=== PATIENT | female | born 1955 | race Caucasian/White ===

== ENCOUNTER → 2023-01-30 12:20 | Outpatient (CLI) | payer MEDICARE, BC, SELFPAY ==
--- NOTE | ~2023-01-30 | DEXA_ITS ---
Bone Density Report Name: MERLIN MADDOX Age: 67 Sex: Female Ethnicity: White Date of : 1955 Indication: postmenopausal; screening for osteoporosis; hysterectomy; Referring Provider: GILBERT CHAUDHARI Study: Bone densitometry was performed. Exam Date: January 30, 2023 Accession number: [id number] Bone Density: Region BMD T-score Z-score Classification AP Spine (L1, L2, L3) 1.083 0.6 2.5 Normal Femoral Neck (Left) 0.917 0.6 2.3 Normal Total Hip (Left) 1.025 0.7 2.1 Normal Femoral Neck (Right) 0.902 0.5 2.1 Normal Total Hip (Right) 1.091 1.2 2.6 Normal Total Hip Mean 1.058 1.0 2.4 Normal World Health Organization criteria for BMD impression classify patients as: Normal (T-score at or above -1.0), Osteopenia (T-score between -1.0 and -2.5), or Osteoporosis (T-score at or below -2.5). 10-year Fracture Risk: FRAX not reported because: All T-scores for Spine Total, Hip Total, Femoral Neck at or above -1.0 Clinical Information Provided by Patient: Has used the following medications: HRT (i.e. estrogen/hormone therapy), Calcium, MTV, vit D included in Calcium Has the following medical conditions: Hysterectomy Patient maximum height was 65 Menopause Age: 38 Drinks caffeinated beverages Onset of menses at age 13 Number of children 2 Impression: The patient has normal bone mass. Discussion: LOW RISK OF FRACTURE; BONE DENSITY IS WELL ABOVE THE MINIMUM DESIRABLE LEVEL AND ABOVE AVERAGE FOR AGE AND SEX AT ALL SKELETAL SITES TESTED. This person's bone density is above expected limits for age and sex. This is rarely clinically significant, but should be pursued if there are significant musculoskeletal complaints. The patient should follow a healthful lifestyle (good nutrition with adequate calcium and vitamin D, and appropriate weight-bearing exercise). Follow-Up: Consider repeating this study in 5 years or sooner if there is some new clinical indication. Reported by: BINH on 01/30/2023 12:59:00 PM. Reviewed, dictated and finalized at location A. LAURA
--- NOTE | ~2023-01-30 | MM_ITS ---
EXAMINATION: MM screening [facility] BI w nicky HISTORY: Screening mammogram TECHNIQUE: Craniocaudal and mediolateral oblique 3-D tomosynthesis images were obtained and synthetic 2-D images were generated. CAD analysis was submitted and interpreted. COMPARISON: Prior mammograms are reportedly at [facility]. BREAST PARENCHYMAL COMPOSITION: There are scattered areas of fibroglandular density. FINDINGS: Prominent asymmetric irregular approximately 3.5-4 cm density with spiculation is noted in the posterior central mid to lower right breast, with evidence of overlying retraction. There are mul tiple areas of fat attenuation with soft tissue capsule. There is a history of bilateral breast reduc tion and lift in July 2022 and right breast hematoma. The findings are most likely postsurgical scar ring and fat necrosis. Comparison with prior mammogram examinations is recommended. No suspicious mass, architectural distortion, malignant calcification, skin thickening or retraction of either breast is noted otherwise. IMPRESSION: 1. Probable postoperative scarring and fat necrosis of right breast 2. Comparison with prior mammograms is recommended BI-RADS Category 0: Incomplete: Needs additional imaging evaluation: Comparison with prior mammogram examinations. Reviewed, dictated and finalized at location A.
== END ==
PROVIDERS: Visit Provider Physician Assistant
DX: Z12.31 Encounter for screening mammogram for malignant neoplasm of breast (principal); R92.8 Other abnormal and inconclusive findings on diagnostic imaging of breast; Z78.0 Asymptomatic menopausal state
CPT/HCPCS: 77063; 77067; 77080

== ENCOUNTER 2023-02-28 11:28 | Outpatient (CLI) | payer MEDICARE, BC, SELFPAY ==
--- NOTE | ~2023-02-28 | MMUS_ITS ---
EXAMINATION: MM diagnostic dee RT w nicky, US breast RT complete HISTORY: Breast reduction surgery in July 2022. Abnormal right screening mammogram on 01/30/2023 TECHNIQUE: Additional 3-D tomosynthesis images of the right breast were performed and synthetic 2-D i mages were generated. CAD analysis was submitted and interpreted. High resolution complete right [place] [facility] ultrasound examination could all 4 quadrants and subareolar area was performed. COMPARISON: 01/30/2023 bilateral screening mammogram 12/15/2021 bilateral screening mammogram BREAST PARENCHYMAL COMPOSITION: There are scattered areas of fibroglandular density. FINDINGS: MAMMOGRAPHIC FINDINGS: There is prominent asymmetric increased density, architectural distortion and multiple thin-walled oi l cysts in the posterior inferior central to outer right breast. Considering a normal mammogram in November 2021 and interval breast reduction surgery in July 2022, the very prominent findings are likely sequela of the breast reduction surgery with fat necrosis and scar ring. ULTRASOUND: In the region of the breast scar at 6:00 there is significant abnormality including oval hypoechoic m asses measuring up to 14 mm size adjacent to approximately 1.8 x 2.8 cm complex mixed solid and soft tissue mass with through transmission posterior enhancement suggesting complicated fluid collection s uch as seroma or hematoma. The mammographic and sonographic features are most suggestive of postoperative change including hemat juan and/or seroma and fat necrosis. IMPRESSION: 1. Probable benign postsurgical change following reduction mammoplasty in July of this year 2. Diagnostic six-month mammogram and ultrasound follow-up are recommended BI-RADS category 3, probably benign findings. Reviewed, dictated and finalized at location A. IMPRESSION: 1. Probable benign postsurgical change following reduction mammoplasty in July this year 2. Diagnostic six-month mammogram and ultrasound follow-up are recommended BI-RADS category 3, probably benign findings.
== END 2023-02-28 11:29 | disposition home or self-care (01) ==
LOC: ANHIMG 11:30
PROVIDERS: Visit Provider Physician Assistant
DX: R92.8 Other abnormal and inconclusive findings on diagnostic imaging of breast (principal)
CPT/HCPCS: 76641; 77061; 77065; G0279

== ENCOUNTER 2023-09-18 10:17 | Outpatient (CLI) | payer MEDICARE, BC, SELFPAY ==
--- NOTE | ~2023-09-18 | MMUS_ITS ---
EXAMINATION: MM diagnostic dee RT w nicky, US breast RT limited HISTORY: Six-month follow-up of probable benign findings on 02/28/2023 diagnostic right mammogram and right breast ultrasound examination TECHNIQUE: Additional 3-D tomosynthesis images of were performed and synthetic 2-D images were genera isabella. CAD analysis was submitted and interpreted. High resolution breast ultrasound was performed. COMPARISON: 02/28/2023 diagnostic right mammogram and incomplete right breast ultrasound examination 01/30/2023 bilateral screening mammogram 12/15/2021 bilateral screening mammogram BREAST PARENCHYMAL COMPOSITION: There are scattered areas of fibroglandular density. FINDINGS: MAMMOGRAPHIC FINDINGS: There is diminished soft tissue density in the previously reported irregular opacity in the posterior mid to lower outer right breast compared to 01/31/2020. There are small oil cysts. There printer's assistant ural distortion most consistent with postsurgical scarring. The breast is otherwise unremarkable. No interval suspicious mass, architectural distortion, malignan t calcification, skin thickening or retraction is noted ULTRASOUND: There is diminished overall size of irregular hypoechogenicity in the 6:00 area since 02/28/2023. There is an approximately 6.5 x 11 x 12 mm circumscribed heterogeneous mass with soft tissue and fat density at 6:00 8 cm from the nipple. A similar partially circumscribed approximately 6.6 x 11 mm are a is noted nearby. The findings are most likely due to some interval contraction of the prominent scarring previously gann ggested. IMPRESSION: 1. Probable benign postoperative findings post reduction mammoplasty 2. Six-month diagnostic bilateral mammogram and right breast ultrasound follow-up are recommended BI-RADS category 3, probably benign findings. Reviewed, dictated and finalized at location A. IMPRESSION: 1. Probable benign postoperative findings post reduction mammoplasty 2. Six-month diagnostic bilateral mammogram and right breast ultrasound follow- up are recommended BI-RADS category 3, probably benign findings.
== END 2023-09-18 10:18 | disposition home or self-care (01) ==
PROVIDERS: PCP Family Medicine; Visit Provider Physician Assistant
DX: R92.8 Other abnormal and inconclusive findings on diagnostic imaging of breast (principal)
CPT/HCPCS: 76642; 77061; 77065; G0279

== ENCOUNTER 2024-03-13 12:30 | Outpatient (CLI) | payer MEDICARE, BC, SELFPAY ==
--- NOTE | ~2024-03-13 | XR_ITS ---
XR shoulder LT min 2V Ordering provider: Chinyere Mao PA-C History: . M54.2 - Cervicalgia . Comparison: None. FINDINGS: BONES: No acute fracture or dislocation. JOINT SPACES: The acromioclavicular joint is normal. The glenohumeral joint is normal. SOFT TISSUES: Normal. IMPRESSION: No acute osseous abnormality left shoulder. Reviewed, dictated and finalized at location A.
--- NOTE | ~2024-03-13 | XR_ITS ---
[id number] Ordering provider: Chinyere Mao PA-C History: . M54.2 - Cervicalgia . Comparison: August 03, 2009 FINDINGS: VERTEBRAL BODIES: Minimal anterolisthesis at the level of C2-C3 and C6-C7. Multilevel uncovertebral j oint osteoarthritic changes. Otherwise, Normal height and alignment. No visible fracture or subluxati on. The dens is intact. DISK SPACES: Degenerative disc disease at the level of C5-C6 and C6-C7. Multilevel facet joint diseas e. PARASPINOUS SOFT TISSUES: No prevertebral soft tissue swelling. IMPRESSION: No acute osseous abnormality cervical spine. Multilevel degenerative disc disease. Changes increased compared to previous study. Reviewed, dictated and finalized at location A. IMPRESSION: No acute osseous abnormality cervical spine. Multilevel degenerative disc disease. Changes increased compared to previous [email or web address]
== END 2024-03-13 12:31 | disposition home or self-care (01) ==
PROVIDERS: PCP Family Medicine; Visit Provider Student in an Organized Health Care Education/Training Program
DX: M25.512 Pain in left shoulder (principal); M50.322 Other cervical disc degeneration at C5-C6 level
CPT/HCPCS: 72040; 73030

== ENCOUNTER 2024-03-20 10:53 | Outpatient (CLI) | payer MEDICARE, BC, SELFPAY ==
--- NOTE | ~2024-03-20 | MMUS_ITS ---
EXAMINATION: MM diagnostic dee BI w nicky, US breast RT limited HISTORY: Six-month follow-up exam TECHNIQUE: 3-D tomosynthesis images of the breasts were performed and synthetic 2-D images were gener ated. CAD analysis was submitted and interpreted. High resolution limited right breast ultrasound was performed. COMPARISON: 09/18/2023, 02/28/2023 BREAST PARENCHYMAL COMPOSITION:Not Dense. There are scattered areas of fibroglandular density. FINDINGS: MAMMOGRAPHIC FINDINGS: Parenchymal pattern of the breasts is similar to prior exam. Stable postoperative change and distorti on in the outer, posterior right breast. No suspicious abnormality of the left breast seen. No suspic ious microcalcifications. ULTRASOUND: At the 6:00 position right breast, 8 cm from nipple, at the region of scar, there is a 0.9 x 0.8 x 0. 8 cm hypoechoic rounded masslike lesion. This is mildly decreased in size from prior exam. At the 7:0 0 position right breast, 9 cm in the nipple, there is an additional 1.0 x 0.6 x 1.0 cm hypoechoic wid er than tall masslike lesion present. IMPRESSION: Similar sonographic findings to prior exams, with 2 somewhat masslike areas present near the region of scarring. Findings likely represent evolving postoperative change and/or fat necrosis. No signific ant mammographic progression, and within the lesion does mildly decrease in size from prior ultrasoun d. Findings are most likely benign. Additional six-month follow-up ultrasound advised to reassess. No definite evidence for malignancy. BI-RADS category 3, probably benign findings. Reviewed, dictated and finalized at location M. IMPRESSION: Similar sonographic findings to prior exams, with 2 somewhat masslike areas pr esent near the region of scarring. Findings likely represent evolving postopera tive change and/or fat necrosis. No significant mammographic progression, and w ithin the lesion does mildly decrease in size from prior ultrasound. Findings a re most likely benign. Additional six-month follow-up ultrasound advised to dominik ssess. No definite evidence for malignancy. BI-RADS category 3, probably benign findings.
== END 2024-03-20 10:54 | disposition home or self-care (01) ==
LOC: ANHIMG 10:53
PROVIDERS: PCP Family Medicine; Visit Provider Physician Assistant Medical
DX: R92.8 Other abnormal and inconclusive findings on diagnostic imaging of breast (principal)
CPT/HCPCS: 76642; 77062; 77066; G0279

== ENCOUNTER 2024-05-31 09:04 | Emergency (ER) | payer MEDICARE, BC, SELFPAY ==
--- NOTE | ~2024-05-31 | XR_ITS ---
XR wrist LT min 3V DATE: 05/31/2024 09:29 INDICATION: Fall. Left wrist pain TECHNIQUE: 3 views COMPARISON: None FINDINGS: There is narrowing at the triscaphe joint. There is narrowing and spurring at the first car pometacarpal joint. There is prominent osteoarthritic change including joint space narrowing and spur ring at the first digit interphalangeal joint as well. No fracture or dislocation, periosteal reaction or bone destruction. IMPRESSION: Polyarticular osteoarthritis No fracture or dislocation Reviewed, dictated and finalized at location A. CAL SECRETARY RECEPTIONIST
[2024-05-31 09:06] VITALS: BP 132/92; PULSE 97; RESP 18; TEMP 37.2; O2SAT 98
--- NOTE | 2024-05-31 09:13 | ED_ITS ---
HPI - Extremity Injury (Upper) General Chief Complaint: Extremity Injury, Upper Stated Complaint: LEFT WRIST PAIN Source: patient Mode of arrival: ambulatory Limitations: no limitations History of Present Illness HPI narrative: this is a 68-year-old female who presents after reaching for kitchen item heard a pop in her left wrist and intense pain did take some Tylenol prior to arrival to the emergency department. Patient has good range of motion although tender and limited secondary to pain has a brisk radial pulse on the left. complaint: injury to: left Onset (ago): hour(s) Other Extremity Injury: Left: wrist ( Pain with palpation) Handedness: right Place: home Severity: mild Severity scale (1-10): 4 Relieving factors: cold therapy and immobilization Exacerbating factors: movement of extremity Related Data Home Medications ?Medication ?Instructions ?Recorded ?Confirmed ?Last Taken ?Type multivitamin-ferrous 1 tablet PO DAILY 02/12/20 05/22/24 Unknown History fumarate-folic acid 18 mg-400 mcg tablet (Centrum Complete) pseudoephedrine HCl 30 mg tablet 30 mg PO Q4-6H PRN 02/12/20 05/22/24 Unknown History (Sudafed) calcium 600 mg (as cap PO 04/12/21 05/22/24 Unknown History carbonate)-vitamin D3 5 mcg (200 unit) capsule famotidine 10 mg tablet 10 mg PO DAILY 04/05/22 05/22/24 Unknown History ferrous sulfate 134 mg (27 mg 134 mg PO DAILY 04/05/22 05/22/24 Unknown History iron) tablet mecobalamin (vitamin B12) 1,000 1,000 mcg PO DAILY 04/05/22 05/22/24 Unknown History mcg chewable tablet thiamine HCl (vitamin B1) 100 mg 100 mg PO DAILY 04/05/22 05/22/24 Unknown History tablet cholecalciferol (vitamin D3) 25 25 mcg PO DAILY 10/03/22 05/22/24 Unknown History mcg (1,000 unit) capsule Allergies Allergy/AdvReac Type Severity Reaction Status Date / Time No Known Allergies Allergy Verified 05/31/24 09:14 [facility] Past Medical History Medical History Depression 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 Hyperlipidemia Microcytic anemia Hypertension Metal bone fixation hardware in place Surgical History Surgical History S/P brachioplasty Hx of breast reduction, elective [place] abdom[place] H/[place] gastric sleeve (~09[place]2021[place] History of hysterectomy H/O total knee replacement History of back surgery History of cholecystectomy [place] teeth removed History of tonsillectomy Family History Family History Sibling Diabetes mellitus Father Hypertension Malignant neoplasm of prostate Family history of malignant neoplasm of urinary bladder Mother Hypertension Acute myocardial infarction Family history of malignant neoplasm of uterus Family history of arthritis Social History Social History Smoking packs per day: 1 Smoking cigarettes per day: 20.0 Years smoked: 20 Smoking pack-years: 20.00 Smoking status: Former smoker Second hand tobacco smoke exposure: No Smoking end date: 05/21/93 Alcohol intake: never Substance use: never Substance use type: does not use Lack of Transportation: No Lack of Food: Never True Current Housing: I Have Housing Concerned About Future Housing: No Difficulty Paying Gas/Electric Bills: No Difficulty Paying for Meds: No Currently Unemployed: No Education: Bachelor's Degree Difficulty w/ Childcare or Family Care: No Living arrangements: with family Occupation/Education: retired Additional occupation/education comments: [employer] Gender identity (if verbalized by the patient): Female Sexual Orientation (if Verbalized by the Patient): Straight or Heterosexual Exam Const: General: healthy appearing, no acute distress and alert Nutritional Appearance: well nourished Limitations: no limitations Resp: Effort & Inspection: normal respiratory effort Auscultation: clear to auscultation bilaterally Cardio: Rate: regular rate Rhythm: regular rhythm Skin: General skin exam: normal color Rashes: no rashes Wounds: no wounds Neuro: General: patient oriented x3 and moves all extremities Extrem: General: normal to inspection Other: Positive Elliott test on the left Course Course Emergency Course: patient had x-ray performed of the left wrist. Critical Care Time Critical Care Time Critical Care Time: No Discharge Plan Discharge Clinical Impression: Left wrist sprain Qualifiers: Encounter type: initial encounter Qualified Code(s): S63.502A - Unspecified sprain of left wrist, initial encounter Patient Disposition: Home, Self-Care Condition: Stable Instructions: Antibiotic Form, Wrist Sprain (ED) Patient Language: Vietnamese Prescriptions: No Action Centrum Complete 18-400 mg-mcg tablet 1 tablet PO DAILY pseudoephedrine HCl [Sudafed] 30 mg tablet 30 mg PO Q4-6H PRN Rx Instructions: DNExceed 4 doses/24h cyclobenzaprine 10 mg tablet 10 mg PO TID Qty: 21 0RF calcium carbonate-vitamin D3 600 mg calcium- 200 unit capsule PO famotidine 10 mg tablet 10 mg PO DAILY mecobalamin (vitamin B12) 1,000 mcg tablet,chewable 1,000 mcg PO DAILY thiamine HCl (vitamin B1) 100 mg tablet 100 mg PO DAILY ferrous sulfate 134 mg (27 mg iron) tablet 134 mg PO DAILY cholecalciferol (vitamin D3) 25 mcg (1,000 unit) capsule 25 mcg PO DAILY venlafaxine [Effexor XR] 150 mg capsule,extended release 24hr 150 mg PO DAILY Qty: 90 2RF lorazepam 1 mg tablet 1 mg PO TID PRN (Reason: anxiety) Qty: 90 0RF lisinopril 20 mg tablet 20 mg PO DAILY Qty: 30 3RF hydrochlorothiazide 12.5 mg tablet 12.5 mg PO DAILY Qty: 90 1RF Follow-up/Referrals: Aiyana Parsons MD [Primary Care Provider] -
== END 2024-05-31 09:43 | disposition home or self-care (01) ==
LOC: CHSED 09:38
PROVIDERS: Emergency Provider Emergency Medicine; PCP Family Medicine
DX: S63.502A Unspecified sprain of left wrist, initial encounter (principal); X50.0XXA Overexertion from strenuous movement or load, initial encounter; Z87.891 Personal history of nicotine dependence
CPT/HCPCS: 73110; 99283

== ENCOUNTER 2024-06-10 12:25 | Outpatient (CLI) | payer MEDICARE, BC, SELFPAY ==
--- NOTE | 2024-06-10 12:44 | ECG_ITS ---
Test Date: 2024-06-10 12:56:01 Measurements Intervals [place] Rate: 67 P: -6 DC: 107 QRS: -21 QRSD: 89 T: 29 QT: 386 QTc: 410 Interpretive Statements SINUS RHYTHM WITH SHORT DC INTERVAL BORDERLINE LEFT AXIS DEVIATION [QRS AXIS < -20] No previous ECG available for comparison Electronically Signed On 06-12-2024 13:32:59 MUSIC COORDINATOR by Diana Lugo
[2024-06-10 13:18] LABS: Alanine Aminotransferase 15 U/L (6-35); Albumin Level 4.1 g/dL (3.5-5.1); Alkaline Phosphatase 73 U/L (38-126); Anion Gap 7 mmol/L (4-12); Aspartate Amino Transferase 20 U/L (14-36); Bilirubin,Total 0.5 mg/dL (0.2-1.3); Blood Urea Nitrogen 19 mg/dL (7-17); Carbon Dioxide 30 mmol/L (22-30); Chloride 102 mmol/L (98-107); Cholesterol 233 mg/dL (0-200); Estimated Glomerular Filt Rate > 60; Glucose 99 mg/dL (65-110); HDL Direct 69 mg/dL; Potassium 4.1 mmol/L (3.4-5.0); Sodium 139 mmol/L (137-145); Triglycerides 164 mg/dL (<150)
[2024-06-10 13:28] LABS: LDL Cholesterol Direct 130 mg/dL
--- OUTSIDE RECORDS SUMMARY | 2024-06-12 18:13 | XMS_ITS | Continuity of Care Document ---
Author Organization [facility] Address [address] [place] [address] Phone Care Team Providers Care Fashion Illustrator Name Role Phone Muly OD OD, Vic Unavailable Unavailabl e Advance Directives Directive Yes / No Effective Date File Name No Information Encounters Encounter Description Practice Location Reason(s) For Visit Diagnoses Date Provider Providers Copied on Encounter [facility], [address], [place], [place], [id number], [place] tel:[phone] SEC [place] Letty Ornelasagustin No Information [address] OD Vic. [address] [place], [place], [id number], [place]. tel:[phone] Family History Family Member Type Diagnosis Age [...]
--- OUTSIDE RECORDS SUMMARY | 2024-06-12 18:14 | XMS_ITS | Patient Health Record ---
Author Organization [facility] [employer] [facility] Address [address] [place] [address] Care Team Providers Care Arbitrator Name Role Phone Aiyana Parsons MD Primary Care Provider UnavailMaribel Hernandes Unavailable [phone] Migration, Provider Unavailable Unavailable Allergies No Known Allergies Reason For Referral No Information Medications Medication SIG (Take, Route, Fr equency, Duration) Notes Start Date End Date Status LORazepam 1 MG 1 tablet Oral twice daily for 30 days 04/29/2024 Active Venlafaxine HCl 75 MG 1 tablet with food Oral Once a day for 90 days Active Venlafaxine HCl 75 MG TAKE 1 TABLET BY M OUTH DAILY WITH FOOD for 90 Active Lisinopril 10 MG 1 tablet Orally Once a day Active Social History Sex Assigned At : Social History Observation Description Sex Assigned At Female Household Question Answer Notes Marital status: Problems Problem Type SNOMED Code ICD Code Onset Dates Problem Status W/U Status Risk Notes Problem [id number] ALFONSO (generalized anxiety disorder) (F41.1) Active confirmed Problem [id number] MDD (major depressive disorder), recurrent episode, mild (F33.0) Active confirmed Vital Signs Heart Rate 89 /min 10/23/2023 Blood pressure diastolic 83 mm Hg 10/23/2023 Weight-kg 73.57 kg 10/23/2023 Blood pressure systolic 132 mm Hg 10/23/2023 Weight 162.2 lbs 10/23/2023 Encounters Encounter Location Date Provider Diagnosis [facility] [address] [place] [address] 10/23/2023 Maribel Dubon MDD (major depressive disorder), recurrent episode, mild F33.0 and ALFONSO (generalized anxiety disorder) F41.[address] [facility] [address] [place] [address] 04/29/2024 Maribel Dubon MDD (major depressive disorder), recurrent episode, mild F33.0 and ALFONSO (generalized anxiety disorder) F41.[address] [facility] [address] [place] [address] 09/10/2023 Provider Migration [address] [address] 10/06/2023 Provider Migration [address] [address] 10/07/2023 Provider Migration Assessments Encounter Date Diagnosis (ICD Code) Assessment Notes Treatment Notes Treatment Clinical Notes Section Notes 10/23/2023 ALFONSO (generalized anxiety disorder) (ICD-10 - F41.1) Overall feels her depression and anxiety are stable on current treatment. Feels situationally mildly depressed due to losing both her previous psychiatrist and primary care provider. Denies side effects to medications. No concerns today, here to re-establish care. 10/23/2023 MDD (major depressive disorder), recurrent episode, mild (ICD-10 - F33.0) Overall feels her depression and anxiety are stable on current treatment. Feels situationally mildly depressed due to losing both her previous psychiatrist and primary care provider. Denies side effects to medications. No concerns today, here to re-establish care. 04/29/2024 MDD (major depressive disorder), recurrent episode, mild (ICD-10 - F33.0) SSRI/SNRI side effects discussed including but not limited to, gastric upset, nausea, vomiting, diarrhea and/or constipation, weight changes, sexual side effects including loss of libido, increased suicidal thoughts/behavio rs in children and young adults, and serotonin syndrome. 04/29/2024 ALFONSO (generalized anxiety disorder) (ICD-10 - F41.1) 04/29/2024 Other Overall stable, cont current medications. Refills sent in. Patient educated on all medications including potential benefits, side effects, risks. Educated on proper dosing schedule and importance of compliance. [place] report checked and consistent with prescription history, no controlled substance prescriptions from other providers. -Assessment and treatment plan reviewed with patient. -Compliance with treatment plan importance discussed. -Discussed the risks/benefits of this medication -Discussed medication side effects. -Contact office if symptoms worsen. -Discussed that it can take up to 6-8 weeks to see full therapeutic effects of psychotropic medications. -Crisis prevention hotline 988. Plan Of Treatment Pending Test Test Name Order Date UDT 10/23/2023 Next Appt Details Provider Name:Maribel Dubon, 10/28/2024 01:00:00 PM, [address] [facility] [address] [address], [facility] [address], [place], [address], Insurance Providers Payer Name Payer Address Payer Phone Subscriber Number Group Number Insured Name Patient Relationship to Insured Coverage Start Date Coverage End Date [employer] Medicare Replaceme nt/Advant age - Ppo [address] [place] [address] [id number] MERLIN MADDOX Self - patient is the insured [facility] [address] [place] [address] [id number] MERLIN MADDOX Self - patient is the insured Medical (General) History Medical History History ICD Code Eye enucleation s/p retinal detachment Surgical History Surgery Date(Month/Year) hysterectomy
--- OUTSIDE RECORDS SUMMARY | 2024-06-12 18:14 | XMS_ITS ---
Author Organization [facility] Address [address] [place] [address] Care Team Providers Care Catalyst Unit Operator Name Role Phone Aiyana Parsons MD Primary Care Provider Maribel Rich Unavailable [phone] Allergies No Known Allergies REASON FOR VISIT follow up Medications Medication SIG (Take, Route, Fr equency, [...] Female Household Question Answer Notes Marital status: Encounters Encounter Location Date Provider Diagnosis [facility] [employer] [facility] [address] [facility] [address] [facility] [address] [place] [address] 04/29/2024 Maribel Dubon MDD (major depressiv e disorder), recurrent episode, mild F33.0 and ALFONSO (generalized anxiety disorder) F41.1 Assessments Encounter Date Diagnosis (ICD Code) Assessment Notes Treatment Notes Treatment Clinical Notes Section Notes 04/29/2024 MDD (major depressive disorder), recurrent episode, mild (ICD-10 - F33.0) SSRI/SNRI side effects discussed including but not limited to, gastric upset, nausea, vomiting, diarrhea and/or constipation, weight changes, sexual side effects including loss of libido, increased suicidal thoughts/behavior s in children and young adults, and serotonin [...] effects of psychotropic medications. -Crisis prevention hotline 698. Plan Of Treatment Medication Medication Name Sig Start Date Stop Date Notes LORazepam 1 MG 1 tablet Oral twice daily for 30 days 04/29/2024 Venlafaxine HCl 75 MG 1 tablet with food Oral Once a day for 90 days Treatment Notes Assessment Notes MDD (major depressive disord er), recurrent episode, mild SSRI/SNRI side effects discussed includi ng but not limited to, gastric upset, nausea, vomiting, diarrhea and/or constipation, weight changes, sexual side effects including loss of libido, increased suicidal thoughts/behaviors in children and young adults, and serotonin syndrome. Other Overall stable, cont current medications. Refills sent in. Patient educated on all medications including potential benefits, side effects, risks. Educated on proper dosing schedule and importance of compliance. [place] report checked and consistent with prescription history, no controlled substance prescriptions from other providers. Next Appt Details Follow Up: 6 Months, Reason: medication follow up Provider Name:Maribel Dubon, 10/28/2024 01:00:00 PM, [address] [facility] [address], [facility] [address], [place], [address], Progress Notes * WES MADDOXOB:1955 ( 68 yo F)Acc No.[id number]:04/29/2024 Patient:?MERLIN MADDOX Provider:?MICHAEL YEBOAHHNNelly :1955???Age:68 Y???Sex:Female D ate:04/29/2024 Address:[address] [place], [place] [id number] Pcp:Aiyana Parsons MD Subjective: * Chief Complaints: * ???Follow up * HPI: ???History of Presenting Problem:?Referral source?Dr Montelongo?.?Medication Side Effects?denies?.?Anxiety?Rates anxiety 5/10 with 10 being most severe. Denies recent panic attacks.?.?Depression?Rates depression 4/10 with 10 being most severe. Denies SI.?.?Mood lability?No hx titus..?Obsessive thoughts?None.?Psychosis?Denies history of psychosis.?.?Sleep disturbance?with difficulty falling asleep, and relieved by, compliance with medication therapy.?Suicidal ideation?Denies suicidal thoughts. No history of SA or self harming.?.?Here for follow up. No medication changes made last apt. Reports she is overall doing well. She is stressed about politics. Mood is anxious and afraid of what is going to happen over the next 4 years . Denies feeling hopeless or helpless, no suicidal ideation. Motivation is fair. Has been anxious over 's health and driving ability secondary to neuropathy. Denies recent panic attacks.? Sleep is good, getting about 7-8 hours nightly. Energy is low to fair.? Appetite is good.? Denies recent falls. ???Past Psychiatric Hospitalizations:? Social history: for 45 years. 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 HTN? No [facility] admissions, IOP, PHP. No SA/SI hx. No self harming hx. Family mental health history: daughter-bipolar disorder. Previous medications: duloxetine ( felt horrible ), sertraline, Lexapro. Substance hx: denies. No nicotine. No alcohol. ???Depression Screening:?PHQ-2 (2015 Edition)?Little interest or pleasure in doing things??Several days,?Feeling down, depressed, or hopeless??Several days,?Total Score?2.?ALFONSO-7 (2018 Edition)?Feeling nervous, anxious, or on edge?Several days, Not being able to stop or control worrying?Several days,?Worrying too much about different things?Several days,?Trouble relaxing?Several days,?Being so restless that it is hard to sit still?Not at all,?Becoming easily annoyed or irritable?Not at all,?Feeling afraid as if something awful might happen?Several days,?Total ALFONSO-7 Score?5,?Interpretation of Total?(5 to 9) Mild.?Depression screening:?PHQ-9?Little interest or pleasure in doing things?Several days,?Feeling down, depressed, or hopeless?Several days,?Trouble falling or staying asleep, or sleeping too much?Not at all,?Feeling tired or having little energy?Several days,?Poor appetite or overeating?Not at all,?Feeling bad about yourself or that you are a failure, or have let yourself or your family down?Not at all,?Trouble concentrating on things, such as reading the newspaper or watching television?Not at all,?Moving or speaking so slowly that other people could have noticed; or the opposite, being so fidgety or restless that you have been moving around a lot more than usual?Not at all,?Thoughts that you would be better off or of hurting yourself in some way?Not at all,?Total Score?3,?Interpretation?Minimal Depression.?Intervention?Depression Screening Findings?Negative,?Suicide Risk Assessment Performed?04/29/2024 csrs negative .? * ROS:?Psychiatric:?Patient denies?anxiety, auditory / visual hallucinations, difficulty sleeping, titus, suicidal thoughts.?Patient complains of?depressed mood.?Comments?See HPI for details.? * Medical History:? * Surgical History:?hysterecto my * Hospitalization/Major Diagno stic Procedure:? * Family History:?Daughter: bi polar disorder.? * Social History:?Household:?Household?Marital status:?.?Miscellaneous:?Occupation: retired. * Medications:?TakingLisinopri l 10 MG Tablet 1 tablet Orally Once a day LORazepam 1 MG Tablet 1 tablet at bedtime as needed Oral Venlafaxine HCl 75 MG Tablet TAKE 1 TABLET BY MOUTH DAILY WITH FOOD Medication List reviewed and reconciled with the patientTaking Lisinopril 10 MG Tablet 1 tablet Orally Once a day Taking LORazepam 1 MG Tablet 1 tablet at bedtime as needed Oral Taking Venlafaxine HCl 75 MG Tablet TAKE 1 TABLET BY MOUTH DAILY WITH FOOD Medication List reviewed and reconciled with the patient * Allergies:?N.K.D.A.no[Allerg ies Verified] Objective: * Vitals:? * Examination: ???Psychiatry: ?Appearance:?well-groomed, appears stated age.?Abnormal body movements:?none.?Affect / mood:?depressed.?Attention:?good.?Attitude:?cooperative.?Homicidal ideation:?none.?Suicidal ideation:?none.?Degree of awareness of surroundings:?within normal limits.?Delusions:?no.?Hallucinations:?no.?Impulse control:?good.?Insight:?good.?Intellectual functioning:?average.?Abstract / proverb - Intellectual function:?average.?Judgement:?good.?Orientation:?awake, alert and oriented x 3.?Perceptual disorders:?no perceptual disorder noted.?Psychomotor activity:?within normal range.?Speech / language:?normal rate, volume, and articulation (RVR).?Thought content:?appropriate.?Thought process:?intact.? Assessment: * Assessment: 1.?MDD (major depressive dis order), recurrent episode, mild - F33.0 (Primary)???2.?ALFONSO (generalized anxiety disorder) - F41.1??? Plan: * Treatment: 2.?ALFONSO (generalized anxiety disorder)? Refill LORazepam Tablet, 1 MG, 1 tablet, Oral, twice daily, 30 days, 60, Refills 5.?? 3.?Others? Notes: Overall stable, cont current medications. Refills sent in. Patient educated on all medications including potential benefits, side effects, risks. Educated on proper dosing schedule and importance of compliance. [place] checked and consistent with prescription history, no controlled substance prescriptions from other providers. ?? Clinical Notes: -Assessment and treatment plan reviewed with patient. -Compliance with treatment plan importance discussed. -Discussed the risks/benefits of this medication -Discussed medication side effects. -Contact office if symptoms worsen. -Discussed that it can take up to 6-8 weeks to see full therapeutic effects of psychotropic medications. -Crisis prevention hotline 988. ?? * Procedure Codes:?58928 BEHAV ASSMT W/SCORE & DOCD/STAND [id number] VISIT COMPLEXITY INHERENT TO ONGOING CARE RELATED TO A PATIENT'S SINGLE, SERIOUS CONDITION OR A COMPLEX [id number] CLIN DEPRESSION SCREEN DOC * Follow Up:?6 Months (Reason: medication follow up) * Billing Information: * Visit Code:? 25360 OFFICE OUTPATIENT VISIT 15 MINUTES EXPANDED HISTORY AND EXAM/LOW MEDICAL DECISION MAKING. * Procedure Codes:? 13745 BEHAV ASSMT W/SCORE & DOCD/STAND INSTRUMENT. G2211 VISIT COMPLEXITY INHERENT TO ONGOING CARE RELATED TO A PATIENT'S SINGLE, SERIOUS CONDITION OR A COMPLEX CONDITION. G8431 CLIN DEPRESSION SCREEN DOC. * ENTIALER Sign off status: Completed true * Provider:?DEMETRA YEBOAH Date:?02/2024 Generated for Davidson monte/Gwyn/eTtatasmitting on:?06/12/2024 06:13 PM CREDENTIALER History and Physical Notes * HPI (History of Present Illness) Category Sub-Category Detail Notes Category Not es History of Presenting Problem Referral source Dr Montelongo Here for follow up. No medication changes made last apt. Reports she is overall doing well. She is stressed about politics. Mood is anxious and afraid of what is going to happen over the next 4 years . Denies feeling hopeless or helpless, no suicidal ideation. Motivation is fair. Has been anxious over 's health and driving ability secondary to neuropathy. Denies recent panic attacks. Sleep is good, getting about 7-8 hours nightly. Energy is low to fair. Appetite is good. Denies recent falls. Anxiety Rates anxiety 5/10 w ith 10 being most severe. Denies recent panic attacks. Depression Rates depression 4/1 0 with 10 being most severe. Denies SI. Suicidal ideation Denies suicidal thou ghts. No history of SA or self harming. Sleep disturbance with difficulty fall ing asleep, and relieved by, compliance with medication therapy Psychosis Denies history of ps ychosis. Mood lability No hx titus. Obsessive thoughts None Medication Side Effects denies Past Psychiatric Hospitalizations Social history: for 45 years. 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 HTN No [facility] admissions, IOP, PHP. No SA/SI hx. No self harming hx. Family mental health history: daughter-bipolar disorder. Previous medications: duloxetine ( felt horrible ), sertraline, Lexapro. Substance hx: denies. No nicotine. No alcohol. Depression screening PHQ-9 Little inte rest or pleasure in doing things: Several days Feeling down, depressed, or hopeless: Se veral days Trouble falling or staying asleep, or sl eeping too much: Not at all Feeling tired or having little energy: S everal days Poor appetite or overeating: Not at all Feeling bad about yourself o r that you are a failure, or have let yourself or your family down: Not at all Trouble concentrating on thi ngs, such as reading the newspaper or watching television: Not at all Moving or speaking so slowly that other people could have noticed; or the opposite, being so fidgety or restless that you have been moving around a lot more than usual: Not at all Thoughts that you would be b richard off or of hurting yourself in some way: Not at all Total Score: 3 Interpretation: Minimal Depression Intervention Depression Screening Findings: N egative Suicide Risk Assessment Performed: 04/29 csrs negative Depression Screening PHQ-2 (2015 Edition) Little interest or pleasure in doing things?: Several days Feeling down, depressed, or hopeless?: S everal days Total Score: 2 ALFONSO-7 (2018 Edition) Feeling nervous, anxious, o r on edge: Several days Not being able to stop or control worryi ng: Several days Worrying too much about different things : Several days Trouble relaxing: Several days Being so restless that it is hard to sit still: Not at all Becoming easily annoyed or irritable: No t at all Feeling afraid as if something awful minnie ht happen: Several days Total ALFONSO-7 Score: 5 Interpretation of Total: (5 to 9) Mild Examination Category Sub-Category Detail Notes Category Not es Psychiatry Appearance: well-groomed, appears stated age Attitude: cooperative Psychomotor activity: within normal rang e Abnormal body movements: none Attention: good Degree of awareness of surroundings: wit hin normal limits Orientation: awake, alert and mark ented x 3 Affect / mood: depressed Speech / language: normal rate, volume, and articulation (RVR) Insight: good Judgement: good Thought process: intact Thought content: appropriate Perceptual disorders: no perceptual diso rder noted Suicidal ideation: none Homicidal ideation: none Intellectual functioning: average Impulse control: good Delusions: no Hallucinations: no Comprehension - Intellectual function: Abstract / proverb - Intellectual functi on: average
--- OUTSIDE RECORDS SUMMARY | 2024-06-12 18:14 | XMS_ITS ---
Author Organization [facility] [employer] Address [address] [place] [address] Care Team Providers Care Carrier Driver Name Role Phone Aiyana Parsons MD Primary Care Provider Maribel Rich Unavailable [phone] Migration, Provider Unavailable Unavailable REASON FOR VISIT EMR-Naseem Medications Medication SIG (Take, Route, Frequency, Duration) Notes Start Date End Date Status Venlafaxine HCl ER 150 MG Oral Active Venlafaxine HCl 75 MG Oral Active LORazepam 1 MG Oral Activ e Social History Sex Assigned At : Social History Observation Description Sex Assigned At Female Encounters Encounter Location Date Provider Diagnosis [facility] [place] [id number] [facility] [address] [facility] [address] [place] [address] 10/07/2023 Provider Migration Plan Of Treatment Next Appt Details Provider Name:Maribel Dubon, 10/28/2024 01:00:00 PM, [address], [facility] [address], [place], [address], Progress Notes * BING MADDOXLORETOOB:1955 ( 68 yo F)Acc No.[id number]:10/07/2023 Patient:?MERLIN MADDOX :1955???Age:68 Y???Sex:Female Address:[address] [place] [address], [address] Subjective: * Chief Complaints: * ???EMR-Naseem * Medical History:? * Surgical History:? * Hospitalization/Major Diagno stic Procedure:? * Medications:?TakingVenlafaxi ne HCl 75 MG Tablet Oral LORazepam 1 MG Tablet Oral Venlafaxine HCl ER 150 MG Capsule Extended Release 24 Hour Oral Taking Venlafaxine HCl 75 MG Tablet Oral Taking LORazepam 1 MG Tablet Oral Taking Venlafaxine HCl ER 150 MG Capsule Extended Release 24 Hour Oral Objective: * Vitals:? * Physical Examination:? Assessment: Plan: * Treatment: * Procedure Codes:? * true * Date:? Generated for Davidson monte/Gwyn/Addis on:?06/12/2024 06:14 PM ONCOLOGY ACCOUNT SPECIALIST
== END 2024-06-10 12:26 | disposition home or self-care (01) ==
LOC: ANHLAB 12:26
PROVIDERS: PCP Family Medicine; Visit Provider Family Medicine
DX: I10 Essential (primary) hypertension (principal); E78.2 Mixed hyperlipidemia
CPT/HCPCS: 36415; 80053; 80061; 93005

== ENCOUNTER 2024-09-17 10:15 | Outpatient (CLI) | payer MEDICARE, BC, SELFPAY ==
--- NOTE | ~2024-09-17 | US_ITS ---
US breast RT limited 09/17/2024 10:50 Indication: Follow-up right breast masses Procedure: High-resolution Limited ultrasound of the right breast Comparison: 03/20/2024 and 09/18/2023 Findings: At 6:00, 8 cm from the nipple there is an oval parallel oriented hypoechoic mass measuring 8 x 7 x 6 mm without internal vascularity. There is mixed posterior attenuation. This is unchanged fr om prior study. At 7:00, 9 cm from the nipple there is a circumscribed parallel oriented mass measuri ng 10 x 8 x 6 mm without internal vascularity or posterior features, unchanged from prior examination . No additional masses are seen. Impression: 1: Stable right breast masses, likely benign. BI-RADS CATEGORY 3-PROBABLY BENIGN FINDING RECOMMENDATION: Six-month follow-up diagnostic bilateral mammogram and Limited right breast ultrasoun d recommended. Reviewed, dictated and finalized at location A. Impression: 1: Stable right breast masses, likely benign. BI-RADS CATEGORY 3-PROBABLY BENIGN FINDING RECOMMENDATION: Six-month follow-up diagnostic bilateral mammogram and Limited right breast ultrasound recommended.
--- OUTSIDE RECORDS SUMMARY | 2024-09-17 11:23 | XMS_ITS | Referral Summary ---
Author Organization [facility] Address [address] [place] [address] Care Team Providers Care Healthcare Financial Analyst Name Role Phone Jade Noel Primary Care Provid er Allergies No known active allergies Medications triamcinolone (NASACORT) 55 mcg nasal inhalerIndicati ons:Chronic Non-Allergic Rhinitis Administer 2 sprays into each nostril daily 10.8 mL 3 2 Active estrogens, conjugated, (PREMARIN) 0.625 mg tablet Take 0.625 mg by mouth daily 2 Active venlafaxine XR (EFFEXOR-XR) 150 mg 24 hr capsule Take 150 mg by mouth daily Active quinapriL (ACCUPRIL) 40 mg tablet Take 1 tablet by mouth nightly 2 Active LORazepam (ATIVAN) 1 mg tablet Take 1 mg by mouth 2 (two) times a day as needed Active loperamide (IMODIUM) 2 mg capsule Take 2 mg by mouth as needed Active multivitamin capsule Take 1 capsule by mouth daily Active calcium carbonate (TUMS) 1,250 mg (500 mg elemental) chewable tablet Take 1 tablet by mouth daily Active vitamin b complex tablet Take 1 tablet by mouth daily Active cholecalciferol (VITAMIN D-3) 5,000 unit capsule Take by mouth daily Active biotin 1 mg capsule Take by mouth Active ferrous sulfate 325 mg (65 mg of elemental iron) tablet Take by mouth Act bozena famotidine (PEPCID) 20 mg tablet Take 20 mg by mouth 2 (two) times a day Active Active Problems Problem Noted Date Diagnosed Date Cystic fibrosis carrier Immunizations Immunization Administration Dates Next Due Flucelvax Influenza Quad 03/05/2017 Influenza, Quadrivalent, Split, Intramuscular Influenza, Quadrivalent, Spl it, Preservative Free, Intramuscular 01/24/2019,02/09/2018 Influenza, Trivalent, IM (MDV) 01/24/2013 Influenza, Trivalent, Preservative Free, Intramu scular 02/04/2016,02/08/2014 TD Preservative Free 07/29/2002 Tdap 12/21/2016,08/01/2012 Social History Tobacco Use Types Packs/Day Years Used Date Smoking Tobacco: Former Cigarettes Smokeless Tobacco: Never Tobacco Cessation:Counseling Given: Not Answered Humiliation, Afraid, Rape, and Kick questionnair e Answer Date Recorded Within the last year, have y ou been afraid of your partner or ex-partner? No 01/19/2022 Within the last year, have y ou been humiliated or emotionally abused in other ways by your partner or ex-partner? No Within the last year, have y ou been kicked, hit, slapped, or otherwise physically hurt by your partner or ex-partner? No 01/19/2022 Within the last year, have y ou been raped or forced to have any kind of sexual activity by your partner or ex-partner? No 01/19/2022 Social Connection and Isolat ion Panel [NHANES] Answer Date Recorded In a typical week, how many times do you talk on the phone with family, friends, or neighbors? More than three times a week 01/19/2022 How often do you get togethe r with friends or relatives? Once a week 01/19/2022 How often do you attend chur or holiness services? 1 to 4 times per year 01/19/2022 Do you belong to any clubs o r organizations such as caodaism groups, unions, fraternal or athletic groups, or school groups? Yes 01/19/2022 How often do you attend meet ings of the clubs or organizations you belong to? Patient declined 01/19/2022 Are you , , di vorced, , never , or living with a partner? 01/19/2022 AUDIT-C Answer Date Recorded Q1: How often do you have a drink containing alc ohol? Never 01/19/2022 Average Number of Drinks Not on file 022 Q3: How often do you have si x or more drinks on one occasion? Never 01/19/2022 Overall Financial Resource Strain (CARDIA) Answe r Date Recorded How hard is it for you to pa y for the very basics like food, housing, medical care, and heating? Not hard at all 01/19/2022 [facility] - Occupational Stress Questionnaire Answer Date Recorded Do you feel stress - tense, restless, nervous, or anxious, or unable to sleep at night because your mind is troubled all the time - these days? Only a little 01/19/2022 Hunger Vital Sign Answer Date Recorded Within the past 12 months, y ou worried that your food would run out before you got the money to buy more. Never true 01/20/20 22 Within the past 12 months, t he food you bought just didn't last and you didn't have money to get more. Never true 01/19/2022 PRAPARE - Transportation Answer Date Re corded In the past 12 months, has l ack of transportation kept you from medical appointments or from getting medications? No 05/2021 In the past 12 months, has l ack of transportation kept you from meetings, work, or from getting things needed for daily living? No 01/19/2022 Housing Stability Vital Sign Answer Keegan e Recorded In the last 12 months, was t here a time when you were not able to pay the mortgage or rent on time? No 01/19/2022 In the last 12 months, how many places have you lived? 1 01/19/2022 In the last 12 months, was t here a time when you did not have a steady place to sleep or slept in a group home (including now)? 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 EXECUTIVE Gender Identity Not on file Sexual Orientation Not on file Last Filed Vital Signs Vital Sign Reading Time Taken Comments Blood Pressure 129/75 01/16/2022 12:03 PM CDT Pulse 78 01/16/2022 12:03 PM CDT Temperature 36.7 C (98.1 F) 10/12/2017 6:57 PM CDT Respiratory Rate 18 01/16/2022 12:03 PM CDT Oxygen Saturation 96% 01/16/2022 12:03 PM CDT room air Inhaled Oxygen Concentration - - Weight 75.8 kg (167 lb 3.2 oz) 01/16/2022 12:03 PM CDT Height 161.3 cm (5' 3.5 ) 01/18/2022 10:20 AM CD T Body Mass Index 29.15 01/16/2022 12:03 PM CDT Plan of Treatment Not on file Procedures Procedure Name Priority Date/Time Associated Diagnosis Comments SCREENING MAMMOGRAM BILATERAL W SEBASTIAN Schedule Routine, Read Routine (OP Routine) 11/12/2019 10:00 AM CDT Encounter for screening mammogram for malignant neoplasm of breast from Last 3 Months or Most Recently Relevant to Health Maintenance Results * Screening Mammogram Bilateral W Sebastian (11/12/2019 10:00 AM CDT) Anatomical Region Laterality Modality Breast Bilateral Mammography 11/12/2019 10:5 2 AM CDT Impressions 11/12/2019 11:19 AM CDT BI-RADS Category 2, benign. Annual screening mammography, yearly clinical breast examination by licensed practitioner and self awareness practices. Electronically signed by: Vickie Shahid M.D. Narrative 11/12/2019 11:19 AM CDT Examination: Bilateral screening digital mammography with CAD and tomosynthesis Order Date: 11/12/2019 10:00 AM History: Routine screening, bilateral reduction mammoplasty 1993. Comparison: 09/28/2017, 08/23/2016, 08/23/2015, 06/19/2014. Findings: Craniocaudal and mediolateral oblique views of both breasts were obtained utilizing full field digital mammography. There are scattered areas of fibroglandular density. Bilateral stable scattered benign calcifications are seen. The parenchymal pattern is stable. There is no suspicious dominant mass, clustered microcalcification or architectural distortion. This examination has been subjected to R2/CAD analysis. us Self Screening Mammogram IMG MAMMO PROCEDURES Fi nal Result from Last 3 Months or Most Recently Relevant to Health Maintenance Insurance [facility] MEDICARE ADVANTAGE [facility] MEDICARE Address: [address] [address] [place] [address] [facility] MEDICARE MEDICARE [employer] OPEN ACCESS [employer] MEDICARE ADVANTAGE [facility] MEDICARE Address: [address] [address] [place] [address] [employer]ESS BLUE ACCESS [employer] MEDICARE ADVANTAGE [facility] MEDICARE Address: [address] [address] [place] [address] [employer]ESS Care Teams Healthcare Financial Analyst Relationship Specialty Start Date End Date Jade Noel PA PCP - General 11/30/21
--- OUTSIDE RECORDS SUMMARY | 2024-09-17 11:23 | XMS_ITS | Clinical Summary ---
Author Organization [facility] Address [address] [place] [address] Care Team Providers Care Print Line Tailer Name Role Phone Jade Noel Primary Care [...] 02/04/2016,02/08/2014 TD Preservative Free 07/29/2002 Tdap 12/21/2016,08/01/2012 Surgical History Surgery Date Site/Laterality Comments HYSTERECTOMY OOPHORECTOMY REDUCTION MAMMAPLASTY 05/21/1983 - 05/20/1984 Bilateral Family History Medical History Relation Name Comments Cancer Father Cancer Mother Relation Name Status Comments Father Mother Social History Tobacco Use Types Packs/Day Years [...] How often do you attend chur or mosque services? 1 to 4 times per year 01/19/2022 Do you belong to any clubs o r organizations such as bahai groups, unions, fraternal or athletic groups, or [...] and heating? Not hard at all 01/19/2022 [facility] - Occupational Stress [...] place to sleep or slept in a skilled nursing (including now)? 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 Gender Identity Not on file Sexual Orientation Not on file Obstetrics History Para Term AB IAB SAB Ectopic Multiple Livin g Live Births 2 2 2 Date Outcome GA Total Labor Labor/2nd/3rd Weight Sex Type Anes PTL Stacey A1 A5 Name Clin Term Term Last Filed Vital Signs Vital Sign Reading [...] 01/16/2022 12:03 PM CDT Plan of Treatment Health Maintenance Due Date Last Done Comments Colon Cancer Screening-Colonoscopy 1955 Depression Screening 1955 Fall Risk Assessment 1955 Hepatitis C Screening 1955 Osteoporosis Screening-Bone Density Scan 1955 Hepatitis B Screening 1973 Well Visit 65+ 2020 Pneumococcal vaccine 65+ (2 of 2 - PPSV23) 04/12/2022 04/12/2021 Breast Cancer Screening-Mammogram 12/15/2022 12/15/2021, 11/12/2019, 09/28/2017, Additional history exists Covid-19 Vaccine (3 - 2023-2 5 season) 2024 10/07/2021, 02/11/2021 Influenza Vaccine (Season Ended) 2025 01/28/2021, 01/21/2020, 01/24/2019, Additional history exists DTaP/Tdap/Td Vaccine (3 - Td or Tdap) 12/21/2026 12/21/2016, 08/01/2012, 07/29/2002 Zoster Vaccine Completed 04/04/2020, 02/03/2020 Procedures Procedure Name Priority Date/Time Associated Diagnosis [...] Most Recently Relevant to Health Maintenance Insurance [id number] MEDICARE [facility] MEDICARE MEDICARE [employer] OPEN ACCESS [facility] ACCESS BLUE ACCESS OOS MEDICARE ADVANTAGE ANTH ACCESS BLUE ACCESS [employer] MEDICARE ADVANTAGE ANTH ACCESS Care Teams Print Line Tailer Relationship Specialty Start Date End Date Jade Noel PA [facility] - General 11/30/21
--- OUTSIDE RECORDS SUMMARY | 2024-09-17 11:23 | XMS_ITS | Clinical Summary ---
Author Organization [facility] Address [address] [place] [address] Care Team Providers Care Book Coverer Name Role Phone Aiyana Parsons MD Primary Care Provider [phone] Allergies No known active allergies Medications estrogens, conjugated, (PREMARIN) 0.625 MG tablet Take 1 tablet (0.625 mg total) by mouth daily. Active famotidine (PEPCID) 20 MG tablet Take 1 tablet (20 mg total) by mouth 2 (two) times daily. Active Multiple Vitamin (MULTIVITAMIN) capsuleIndicati ons:hold Take 1 capsule by mouth daily. Indications: hold Active LORazepam (ATIVAN) 1 MG tablet Take 1 tablet (1 mg total) by mouth 2 (two) times daily as needed for Anxiety. Active lisinopril (PRINIVIL) 20 MG tablet Take 1 tablet (20 mg total) by mouth daily. Active Diphenoxylate-A tropine (LOMOTIL OR) Take 1 tablet by mouth 4 (four) times daily. Active pseudoephedrine (SUDAFED) 60 MG tablet Take 1 tablet (60 mg total) by mouth every 4 (four) hours as needed for Congestion. Active venlafaxine (EFFEXOR) 75 MG tablet Take 1 tablet (75 mg total) by mouth 2 (two) times daily with meals. with food. 05/06/2024 Active hydroCHLOROthia zide (MICROZIDE) 12.5 MG tablet Take 1 tablet (12.5 mg total) by mouth daily. 05/16/2024 Active Active Problems Problem Noted Date Diagnosed Date Cervical spinal stenosis 06/23/2024 Encounters Date Type Department Care Team Description 06/23/2024 9:13 AM EXECUTIVE OFFICER Anesthesia Event [facility] [place] [address] [place] [address] Raheel Hernandez MD Bracco, Kendra A, RN 06/23/2024 9:10 AM EXECUTIVE OFFICER - 06/23/2024 11:42 AM EXECUTIVE OFFICER Surgery [facility] [place] [address] [place] [address] Louie Bates MD DISCECTOMY AND FUSION SPINAL ANTERIOR CERVICAL C4-7 WITH ALLOGRAFT BONE AND PLATING 06/23/2024 6:41 AM EXECUTIVE OFFICER - 06/23/2024 2:20 PM EXECUTIVE OFFICER Hospital Encounter [facility] [place] [address] [place] [address] Louie Bates MD Discharge Disposition: Home or Self Care (Routine Discharge) 06/23/2024 Travel from Last 3 Months Family History Medical History Relation Comments Cancer Father Cancer Mother Stroke Mother Relation Status Comments Father Mother Social History Tobacco Use Types Packs/Day Years Used Date Smoking Tobacco: Former Cigarettes Tobacco Cessation:Counseling Given: Not Answered Comments:Quit 35yrs ago Alcohol Use Standard Drinks/Week Comments Not Currently 0 (1 standard drink = 0.6 oz pur e alcohol) Comments Unknown Sex and Gender Information Value Date Recorded Sex Assigned at Female 06/23/2024 6:40 AM EXECUTIVE OFFICER Legal Sex Female 10:02 PM EXECUTIVE OFFICER Gender Identity Not on file Sexual Orientation Not on file Last Filed Vital Signs Vital Sign Reading Time Taken Comments Blood Pressure 137/75 06/23/2024 1:27 PM EXECUTIVE OFFICER Pulse 79 06/23/2024 1:27 PM EXECUTIVE OFFICER Temperature 36 C (96.8 F) 06/23/2024 11:15 AM EXECUTIVE OFFICER Respiratory Rate 18 06/23/2024 1:27 PM EXECUTIVE OFFICER Oxygen Saturation 95% 06/23/2024 1:27 PM EXECUTIVE OFFICER Inhaled Oxygen Concentration - - Weight 72.6 kg (160 lb) 06/16/2024 5:23 PM EXECUTIVE OFFICER Height 165.1 cm (5' 5 ) 06/16/2024 5:23 PM EXECUTIVE OFFICER Body Mass Index 26.63 06/16/2024 5:23 PM EXECUTIVE OFFICER Plan of Treatment Health Maintenance Due Date Last Done Comments Colorectal Cancer Screening Colonoscopy (10 Years) 1955 Hepatitis C 1973 Annual Medicare Wellness Visit 2020 Dexa Scan (General) 2020 Mammogram Screening 11/11/2021 11/12/2019, 09/28/2017, 08/23/2016, Additional history exists COVID-19 Vaccine ( season) 2024 01/23/2024, 02/25/2023, 03/20/2022, Additional history exists DTaP, Tdap and Td Vaccines (3 - Td or Tdap) 12/21/2026 12/21/2016, 08/01/2012, 07/29/2002 Zoster Vaccines Completed 04/04/2020, 02/03/2020 Pneumococcal Vaccine: 50+ Years Completed 02/25/2023, 04/12/2021 RSV Immunization or 60+ Years Completed 03/18/2023 Meningococcal B Vaccine Aged Out No l onger eligible based on patient's age to complete this topic Meningococcal Vaccine Aged Out No rhiannon dillon eligible based on patient's age to complete this topic RSV Immunizations Under 20 Months Aged Out No longer eligible based on patient's age to complete this topic Medical Devices Implanted Type Area Tobacco Scrap Sifter Device Identifier Shelf Expiration Date Model / Serial / Lot Graft Bone Lord Cortical Can Asr Medtronic 6 X 14 X 11 - [id number] Implanted:Qty: 1 on 06/23/2024 by Louie Bates MD at [facility] N/A: Spine Cervical [employer] 10/10/2026 [id number] / [id number] / Description:LOT: [id number] Graft Bone Lord Cortical Can Asr Medtronic 6 X 14 X 11 - [id number] Implanted:Qty: 1 on 06/23/2024 by Louie Bates MD at [facility] N/A: Spine Cervical [employer] 10/10/2026 [id number] / [id number] / Description:LOT: [id number] Graft Bone Lord Cortical Can Asr Medtronic 6 X 14 X 11 - [id number] Implanted:Qty: 1 on 06/23/2024 by Louie Bates MD at [facility] N/A: Spine Cervical [employer] 11/29/2026 [id number] / [id number] / Description:LOT: [id number] 55mm Three-Level Plate Implanted:Qty: 1 on 06/23/2024 by Louie Bates MD at [facility] N/A: Spine Cervical [employer] [id number] / / 3.5 X 14mm Sd Screw Implanted:Qty: 8 on 06/23/2024 by Louie Bates MD at [facility] N/A: Spine Cervical [employer] [id number] / / Explanted Type Area Tobacco Scrap Sifter Device Identifier Shelf Expiration Date Model / Serial / Lot Drill Bit Medtronic - [id number] Explanted:Qty: 1 on 06/23/2024 by Louie Bates MD at [facility] Drill N/A: Spine Cervical [employer] 02/25/2029 [id number] / / [id number] Pin Distraction Medline 12mm - [id number] Explanted:Qty: 2 on 06/23/2024 by Louie Bates MD at [facility] Pin N/A: Spine Cervical [employer] [id number] / / Procedures Procedure Name Priority Date/Time Associated Diagnosis Comments SURG XR CERV SPINE 1V Routine 06/23/2024 10:52 AM EXECUTIVE OFFICER SURG XR CERV SPINE 1V Routine 06/23/2024 10:10 AM EXECUTIVE OFFICER FUSION SPINAL ANTERIOR CERVICAL 06/23/2024 8:58 AM EXECUTIVE OFFICER CERVICAL STENOSIS Case Notes [facility] A[facility] PER OFFICEREP CONTACTED BY HOSPITAL from Last 3 Months Results * SURG XR CERV SPINE 1V (06/23/2024 10:52 AM EXECUTIVE OFFICER) Only the most recent of2 resultswithin the time period is included. Anatomical Region Laterality Modality Spine Radiographic Maria Victoria ging 06/23/2024 12:3 2 PM EXECUTIVE OFFICER Impressions 06/23/2024 12:33 PM EXECUTIVE OFFICER IMPRESSION: ACDF C4-C7 Referred By: Interpreted By: Kalen Hutton MD, 06/23/2024 12:32 PM Narrative 06/23/2024 12:33 PM EXECUTIVE OFFICER [address] [address] Examination: SURG XR CERV SPINE 1V Exam time: 06/23/2024 10:52 AM Indication: N OR FOR IMAGE LOC #1 FOR DISCECTOMY AND FUSION SPINAL ANTERIOR CERVICAL C4-7 WITH ALLOGRAFT BONE AND PLATING (Spine Cervical). Comparison: None Findings: One view lateral C-spine x-ray done portable crosstable. Anterior screw and plate at C4-C7 with disc grafts . Degenerative changes seen in the C-spine. Procedure Note Kalen Hutton MD - 06/23/[address] [id number] Examination: SURG XR CERV SPINE 1V Exam time: 06/23/2024 10:52 AM Indication: N OR FOR IMAGE LOC #1 FOR DISCECTOMY AND FUSION SPINALANTERIOR CERVICAL C4-7 WITH ALLOGRAFT BONE AND PLATING (Spine Cervical). Comparison: None Findings: One view lateral C-spine x-ray done portable crosstable.Anterior screw and plate at C4-C7 with disc grafts . Degenerative changesseen in the C-spine. IMPRESSION: ACDF C4-C7 Referred By: Interpreted By: Kalen Hutton MD, 06/23/2024 12:32 PM us Louie Bates MD IMAGES ONLY Final Resu lt from Last 3 Months Insurance [employer] Care Teams Book Coverer Relationship Specialty Start Date End Date Aiyana Parsons MD [address] [place] [address] PCP - General FAMILY PRACTICE 06/16/24
--- OUTSIDE RECORDS SUMMARY | 2024-09-17 11:23 | XMS_ITS | Encounter Summary ---
Author Organization [facility] Address [address] [place] [address] Care Team Providers Care Personnel Consultant Name Role Phone Aiyana Parsons MD Primary Care Provider [phone] Encounter Details Date Type Department Care Team (Late st Contact Info) Description 08/04/2017 Abstract [facility] CONVERSION [address] [place] [address] , Generic ConversionMD Social History Tobacco Use Types Packs/Day Years Used Date Smoking Tobacco: Never Assessed Comments Unknown Sex and Gender Information Value Date Recorded Sex Assigned at Female 06/23/2024 6:40 AM SURFACE HYDROLOGIST Legal Sex Female 10:02 PM SURFACE HYDROLOGIST Gender Identity Not on file Sexual Orientation Not on file documented as of this encounter Plan of Treatment Not on file documented as of this encounter Visit Diagnoses Not on filedocumented in this encounter Care Teams Personnel Consultant Relationship Specialty Start Date End Date Aiyana Parsons MD [address] [place] [address] PCP - General FAMILY PRACTICE 06/16/24 documented as of this encounter
--- OUTSIDE RECORDS SUMMARY | 2024-09-17 11:24 | XMS_ITS | Clinical Summary ---
Author Organization [facility] Address [address] [place] [address] Care Team Providers Care Film Recordist Name Role Phone Kj Payne MD Primary Care Provider [phone] Bhavik Lawson MD Unavailable Source Comments [facility],non-owned Affiliates and Associated Physician Practices is amultiple site organization consisting of ambulatory clinics and hospital sitesin [place], [place], [place]. This disclosure is being madepursuant to the Care Everywhere program and may not contain all information available regarding this patient. Last updated [employer] [facility] Allergies No known active allergies Medications * Be aware that medications may not be up to date on this document. Alwaysverify current medications with the patient. hydrochlorothiaz nicci (HYDRODIURIL) 25 MG tablet Take 25 mg by mouth once daily. Active quinapril (ACCUPRIL) 40 MG tablet Take 40 mg by mouth once daily. Active Venlafaxine HCl (VENLAFAXINE ER 24HR) 150 MG tablet Take 300 mg by mouth daily with breakfast. Active LORazepam (ATIVAN) 1 MG tablet Take 1 mg by mouth every 8 hours as needed. Active estrogens, conjugated, (PREMARIN) 0.625 MG tablet Take 0.625 mg by mouth once daily. Active meloxicam (MOBIC) 15 MG tablet Take 1 Tab by mouth once daily. 90 Tab 2 4 Active methylPREDNISolo ne acetate (DEPO-MEDROL) 40 MG/ML injectionIndicat ions:Osteoarthro sis, unspecified whether generalized or localized, lower leg Administer on office 2 mL 0 4 Active Active Problems Problem Noted Date Diagnosed Date Essential hypertension 09/22/2013 Overview (02/18/2015): Social History Tobacco Use Types Packs/Day Years Used Date Smoking Tobacco: Unknown Alcohol Use Standard Drinks/Week Comments Not Asked 0 (1 standard drink = 0.6 oz pur e alcohol) Comments Unknown Sex and Gender Information Value Date Recorded Sex Assigned at Not on file Legal Sex Female 10:05 AM CDT Gender Identity Not on file Sexual Orientation Not on file Last Filed Vital Signs Vital Sign Reading Time Taken Comments Blood Pressure - - Pulse - - Temperature - - Respiratory Rate - - Oxygen Saturation - - Inhaled Oxygen Concentration - - Weight 89.8 kg (198 lb) 09/22/2013 3:47 PM CDT Height 172.7 cm (5' 8 ) 09/22/2013 3:47 PM CDT Body Mass Index 30.11 09/22/2013 3:47 PM CDT Plan of Treatment Health Maintenance Due Date Last Done Comments BONE DENSITY TESTING 1955 COLOGUARD (AGES 45-75) - COL ON CA SCREENING 1955 COLON MONITORING 1955 COLONOSCOPY - COLON CA SCREENING 1955 CT COLONOGRAPHY - COLON CA SCREENING 1955 Colorectal Cancer Screening 1955 FIT - COLON CA SCREENING 1955 FLEX SIG - COLON CA SCREENING 1955 LIPID TESTING 1955 MAMMOGRAM 1955 HEPATITIS C SCREENING 05/27/1973 DTAP/TDAP/TD VACCINES (1 - Tdap) 1974 PNEUMOCOCCAL VACCINE 50+ (1 of 1 - PCV) 2005 ZOSTER VACCINE (1 of 2) 2005 COVID-19 VACCINE ( - 2023-2 5 season) 2024 DEPRESSION SCREENING 05/21/2024 INFLUENZA VACCINE (Season Ended) 2025 Respiratory Syncytial Virus (RSV) Vaccine Pt: or over 60 yrs (1 - 1-dose 75+ series) 2030 HEPATITIS B VACCINE Aged Out No longe r eligible based on patient's age to complete this topic HIB VACCINE Aged Out No longer eligi ble based on patient's age to complete this topic HPV VACCINE Aged Out No longer eligi ble based on patient's age to complete this topic MENINGOCOCCAL (Group B) VACC INE SHARED DECISION-MAKING Aged Out No longer eligibl e based on patient's age to complete this topic MENINGOCOCCAL GROUPS A/C/Y/W VACCINE Aged Out No longer eligible b ased on patient's age to complete this topic Insurance MEDICARE [employer] COUNTS INCLUDE 234 BEDS AT [facility] Care Teams Film Recordist Relationship Specialty Start Date End Date Kj Payne MD [address] [place] [address] PCP - General Family Medicine 09/22/13 [place] [id number] [place] [id number] Orthopedic Surgery 09/22/13
--- OUTSIDE RECORDS SUMMARY | 2024-09-17 11:24 | XMS_ITS | Data Portability ---
Author Organization [facility] JEIMY Keenan [facility] Address [address] [facility] [place] [address] Care Team Providers Care Electronic Technologist Name Role Phone THONG RAMOS Transporter Radiology ROB SINGH Primary Care Provider BUD ASHFORD Psychiatrist Assessment No assessment recorded. Plan of Treatment Reminders Order Date Submit Date Provider Last Modified By Organization Details Last Modified Time Details Appointments None recorded. Lab pap, IG + CT/NG/TV + reflex HPV (16+18) 2015 016 [email or web address] [facility], [address] [place] [address], [address], [place], [address], 6 16:55:25 RPR (rapid plasma reagin), serum 2015 016 [email or web address] [facility], [address] [place] [address], [address], [place], [address], 6 12:53:49 HBsAg (hepatitis B surface Ag), EIA, serum 2015 016 [email or web address] [facility], [address] [place] [address], [address], [place], [address], 6 12:53:49 hepatitis C Ab, signal-to- cutoff, serum or plasma 2015 016 [email or web address] [facility], [address] [place] [address], [address], [place], [address], 6 12:53:49 HIV (1+O+2) Ab, serum 2015 016 [email or web address] [facility], [address] [place] [address], [address], [place], [address], 6 12:53:50 Referral gastroente rologist referral 2016 017 [email or web address] Not available 7 15:58:31 Procedures None recorded. Surgeries None recorded. Imaging MAMMO, screening, digital, bilateral 2017 018 LUZ Sarmiento (Radiology), [address] [facility] , [place], [address], 8 13:32:06 MAMMO, screening, digital, bilateral 2016 017 LUZ Not available 7 16:56:57 MAMMO, screening, digital, bilateral 2015 016 LUZ Not available 6 23:36:20 Medication Orders Premarin 0.625 mg tablet 2017 018 INTERFACE [facility], [address], [place] [address], [place], [id number], 8 11:20:25 Premarin 0.625 mg tablet 2016 017 INTERFACE [facility], [address] [place] [address], [address], [place], [place], [id number], 7 11:18:11 Premarin 0.625 mg tablet 2015 016 [email or web address] 3 [facility], [address] [place] [address], [address], [place], [id number], 6 12:40:11 Patient TargetsNo targets recorded. Patient Instructions Encounter Date Encounter Id Patient Instructions Last Modified By Organization Details Last Modified Time 08/10/2015 [id number] hot flashes during menopause: care instructions [email or web address] Not available 08/10/2015 12:40:11 learning about breast cancer screening [email or web address] Not available 08/10/2015 12:40:10 09/23/2015 [id number] learning about breast cancer screening Not available 12/13/2015 14:26:02 08/14/2016 [id number] learning about breast cancer screening Not available 08/14/2016 11:14:57 09/04/2017 [id number] learning about breast cancer screening Not available 09/04/2017 11:19:32 Reason for Referral Referring Physician: Thong germain, RV DETAILER, Encounter Date: 08/14/2016 Results Created Date Observation Date Name Description Value Unit Range Abnormal Flag Note LastModifiedBy Organization Detail LastModifiedTime 08/11/19 16 08/14/2015 bacte rial vagin osis + vagin itis panel , vagin al atopobium vaginae LOW - 0 score Not Available [facility] ([facility]) [address] [place], [address], 08/14/2015 14:36:43 08/11/19 16 08/14/2015 bacte rial vagin osis + vagin itis panel , vagin al bvab 2 LOW - 0 score Not Available [facility] ([facility]) [address] [place], [address], 08/14/2015 14:36:43 08/11/19 16 08/14/2015 bacte rial vagin osis + vagin itis panel , vagin al megasphaera 1 LOW - 0 score CALCU LATE TOTAL SCORE BY AIYANA Brownlee THE 3 INDIV IDUAL BACTE RIAL VAGIN OSIS (BV) MARKE R SCORE S TOGET HER. TOTAL SCORE IS INTER PRETE D FOLLO WS: TOTAL SCORE 0-1: INDIC ATES THE ABSEN CE OF BV. TOTAL SCORE 2: INDET ERMIN ATE FOR BV. ADDIT IONAL CLINI RANDY DATA SHOUL D BE EVALU ATED TO ESTAB CARITO A DIAGN OSIS. TOTAL SCORE 3-6: INDIC ATES THE PRESE NCE OF BV. THIS TEST WAS DEVEL OPED AND ITS PERFO RMANC E JODY CTERI STICS DETER MINED BY [employer]. IT HAS NOT BEEN CLEAR ED OR APPRO ANA PAULA BY THE FOOD AND DRUG ADMIN ISTRA TION. THE FDA HAS DETER MINED THAT SUCH CLEAR ANCE OR APPRO RALPH IS NOT NECES SUDHEER. Not Available [facility] ([facility]) [address] [place], [address], 08/14/2015 14:36:43 08/11/19 16 08/14/2015 bacte rial vagin osis + vagin itis panel , vagin al lui albicans, IAIN NEGATI VE negati ve Not Available [facility] ([facility]) [address] [place], [address], 08/14/2015 14:36:43 08/11/19 16 08/14/2015 bacte rial vagin osis + vagin itis panel , vagin al lui glabrata, IAIN NEGATI VE negati ve THIS TEST WAS DEVEL OPED AND ITS PERFO RMANC E JODY CTERI STICS DETER MINED BY [employer]. IT HAS NOT BEEN CLEAR ED OR APPRO ANA PAULA BY THE FOOD AND DRUG ADMIN ISTRA TION. THE FDA HAS DETER MINED THAT SUCH CLEAR ANCE OR APPRO RALPH IS NOT NECES SUDHEER. Not Available [facility] ([facility]) [address] [place], [address], 08/14/2015 14:36:43 08/11/19 16 08/14/2015 bacte rial vagin osis + vagin itis panel , vagin al trich vag by IAIN NEGATI VE negati ve Not Available [facility] ([facility]) [address] [place], [address], 08/14/2015 14:36:43 08/11/19 16 08/14/2015 bacte rial vagin osis + vagin itis panel , vagin al chlamydia trachomatis, IAIN NEGATI VE negati ve Not Available [facility] ([facility]) [address] [facility], [address], 08/14/2015 14:36:43 08/11/19 16 08/14/2015 bacte rial vagin osis + vagin itis panel , vagin al neisseria gonorrhoeae, IAIN NEGATI VE negati ve Not Available [facility] ([facility]) [address] [facility], [place], [address], 08/14/2015 14:36:43 08/23/19 16 08/23/2015 MAMMO , scree ruben, digit al, bilat eral No observ ation record ed. [email or web address] [address] [place], [address], 08/26/2015 08:54:25 08/24/19 17 08/23/2016 MAMMO , scree ruben, digit al, bilat eral No observ ation record ed. [email or web address] [address] [place], [address], 08/30/2016 13:53:30 09/29/19 18 09/28/2017 MAMMO , scree ruben, digit al, bilat eral No observ ation record ed. [email or web address] [address] [place], [address], 10/10/2017 10:35:33 Result Notes None recorded. Problems Name Problem SNOMED Code Status Onset Date Resolution Date Notes Provider Name and Address Organization Details Recorded Time Acid reflux 776645982 Active Crystal [place], [place] - [facility] 6 11:33:59 Hypertensive disorder 30830344 Active [place] [facility] 6 11:33:59 Anxiety 54735033 Active [place] [facility] 6 11:33:59 Menopausal flushing 609430044 Active Crystal [place] [facility] 6 11:33:59 Problem Notes None recorded. Procedures Surgical History Date Name Laterality Status Provider Name and Address Organization Details Recorded Time 12/20/19 17 Back Surgery completed Crystal Omaha [facility] 09/04/2017 10:43:32 08/24/19 17 Most Recent Mammogram completed Beth Jimenez [facility] 09/04/2017 10:41:24 07/19/18 96 Removal of ovary/tube(s) completed Thong Ramos [facility] 09/04/2017 11:02:15 07/19/18 96 Total hysterectomy completed Thong Ramos [facility] 08/10/2015 11:23:42 Other completed Beth Jimenez [facility] 08/10/2015 11:08:16 Tonsillectomy completed Beth Jimenez [facility] 08/10/2015 11:08:16 Breast Surgery completed Beth Jimenez [facility] 08/10/2015 11:08:16 Other completed Thong Ramos [facility] 08/10/2015 11:23:18 Imaging Results Imaging Date Name Status LastModified by Organiz ation Details LastModified Time 08/23/2015 MAMMO, screening, digital, bilateral completed [email or web address] [place], [address], 08/26/2015 08:54:25 08/23/2016 MAMMO, screening, digital, bilateral completed [email or web address] [address] [place], [address], 08/30/2016 13:53:30 09/28/2017 MAMMO, screening, digital, bilateral completed [email or web address] [address] [place], [address], 10/10/2017 10:35:33 Procedure Notes None recorded. Medical Equipment None Reported. Allergies No known drug allergies Medications Name Sig Start Date Stop Date Status Note LastModified by Organization Details LastModified Time amoxicillin 500 mg capsule active Not Available Not Available Not Available ibuprofen 800 mg tablet active Not Available Not Available No t Available valacyclovir 1 gram tablet active Not Available Not Availabl e Not Available hydrocodone 5 mg-acetaminop hen 325 mg tablet active Not Available Not Available Not Available venlafaxine ER 150 mg capsule,exten ded release 24 hr active Not Available Not Available Not Available hydrocodone 10 mg-acetaminop hen 325 mg tablet 04/17 /2018 completed Not Available Not Available Not Available tramadol 50 mg tablet active Not Available Not Available No t Available quinapril 40 mg tablet active Not Available Not Available No t Available risperidone 2 mg tablet active Not Available Not Available No t Available oxycodone-tyson taminophen 5 mg-325 mg tablet active Not Available Not Available Not Available estradiol 1 mg tablet TAKE 1 TABLET BY MOUTH EVERY DAY active Not Available Not Available No t Available hydrocodone 7.5 mg-acetaminop hen 325 mg tablet active Not Available Not Available Not Available cephalexin 500 mg capsule active Not Available Not Available Not Available erythromycin 5 mg/gram (0.5 %) eye ointment 08/14 completed Not Available Not Available Not Available polymyxin B sulfate 10,000 unit-trimetho prim 1 mg/mL eye drops active Not Available Not Available No t Available ranitidine 150 mg capsule active Not Available Not Available Not Available hydrochloroth iazide 25 mg tablet active Not Available Not Available Not Available lorazepam 1 mg tablet active Not Available Not Available No t Available ibuprofen 600 mg tablet active Not Available Not Available No t Available oxycodone-tyson taminophen 7.5 mg-325 mg tablet 09/04 completed Not Available Not Available Not Available escitalopram 10 mg tablet active Not Available Not Available Not Available escitalopram 20 mg tablet active Not Available Not Available Not Available moxifloxacin 0.5 % eye drops active Not Available Not Available Not Available Premarin 0.625 mg tablet active Not Available Not Available Not Available Boostrix Tdap 2.5 Lf unit-8 mcg-5 Lf/0.5 mL intramuscular suspension active Not Available Not Available N ot Available chlorhexidine gluconate 0.12 % mouthwash active Not Available Not Available No t Available GaviLyte-N 420 gram oral solution 09/04 completed Not Available Not Available Not Available Vicodin ES 7.5 mg-300 mg tablet active Not Available Not Available Not Available Fluvirin 5134-7286 (PF) 45 mcg (15 mcg x 3)/0.5 mL IM syringe active Not Available Not Available Not Available Fluvirin (PF) 45 mcg (15 mcg x 3)/0.5 mL intramuscular syringe active Not Available Not Available Not Available Flucelvax Quad (PF) 60 mcg (15 mcg x 4)/0.5 mL IM syringe active Not Available Not Available Not Available Vitals Date Recorded Body height Body mass index (BMI) Body weight Systolic blood pressure Diastolic blood pressure Provider Name and Address Organization Details Last Updated DateTime 09/04/2017 165.1 cm 33.1 kg/m2 11507.52 g 132 mm[Hg] 84 mm[Hg] Beth Jimenez [facility] 8 10:38:51 Date Recorded Body mass index (BMI) Body weight Body height Systolic blood pressure Diastolic blood pressure Provider Name and Address Organization Details Last Updated DateTime 08/10/2015 32.8 kg/m2 13663.41 5364 g 165.1 cm 116 mm[Hg] 76 mm[Hg] [facility] 6 11:03:45 Date Recorded Body weight Body mass index (BMI) Body height Systolic blood pressure Diastolic blood pressure Provider Name and Address Organization Details Last Updated DateTime 09/23/2015 89100.43 4439 g 32.4 kg/m2 165.1 cm 138 mm[Hg] 88 mm[Hg] [facility] 6 11:34:00 Date Recorded Body height Body weight Body mass index (BMI) Systolic blood pressure Diastolic blood pressure Provider Name and Address Organization Details Last Updated DateTime 08/14/2016 165.1 cm 88777.1 g 32.6 kg/m2 124 mm[Hg] 84 mm[Hg] [facility] 7 10:41:57 Social History Question Answer Notes LastModified by Organizat ion Details LastModified Time Tobacco Smoking Status Former Smoker quit 2005 Beth Jimenez [facility] 08/10/2015 11:08:16 What Is Your Level Of Alcohol Consumption? None Information not available 08/10/2015 Is Blood Transfusion Acceptable In An Emergency? Yes Information not available 08/10/2015 What Is Your Level Of Caffeine Consumption? Occasional Information not available 08/10/2015 How Much Tobacco Do You Chew? None Information not available 08/10/2015 Are You Currently Employed? No Retired Information not available 08/10/2015 What Type Of Diet Are You Following? REGULAR Information not available 08/10/2015 Which Illicit Or Recreational Drugs Have You Used? No Information not available 08/10/2015 Education 4 Year College Informatio n not available 08/10/2015 Live Alone Or With Others? With Others Information not available 08/10/2015 What Was The Date Of Your Most Recent Tobacco Screening? 09/04/2017 Information not available 12/12/2018 How Many Children Do You Have? 2 Information not available 08/10/2015 Performs Monthly Self-breast Exam? Yes Information not available 08/10/2015 What Is Your Relationship Status? Information not available 08/10/2015 Seat Belts Used Routinely Yes Information not available 08/10/2015 Are You Sexually Active? Yes Information not available 08/10/2015 General Stress Level Medium Information not available 09/04/2017 Do You Use Sunscreen Routinely? Yes Information not available 08/10/2015 How Many Years Have You Smoked Tobacco? 5 Information not available 08/10/2015 Sex: Unknown Functional Status Question Answer Note LastModified by Organizat ion Details LastModified Time What is your exercise level? Occasional Information not available 08/10/2015 Mental Status None recorded. Family History Relationship Description Onset Age of this Age Resolved Age Notes LastModified by Organization Details LastModified Time Father Hypertensive disorder [place] Not available 2015 11:34:00 Father Malignant neoplasm of urinary bladder [place] Not available 2015 11:34:00 Father Malignant neoplasm of prostate [place] Not available 2015 11:34:00 Mother Malignant neoplasm of uterus [place] Not available 2015 11:34:00 Mother Heart disease [place] Not available 2016 10:45:25 Mother Hypertensive disorder [place] Not available 2016 10:45:37 Brother Diabetes mellitus [place] Not available 2015 11:34:00 Maternal Grandfather Diabetes mellitus [place] Not available 2017 10:42:34 Medical History Condition Response Other N High Blood Pressure Y Breast Cancer N Thyroid Problems N Kidney or Bladder Problems N Lung Disease N Depression Y Blood Clots Y GI Problems N Acne N Eating Disorder N Breast Problem N Anemia N Anesthesia Complications N Headaches/Migraines Y Anxiety Disorder Y Ovarian Cancer N Diabetes N Muscle, Joint, or Bone Problems N Blood Transfusions Y Seizures/Epilepsy N Infertility N Polyps N Acid Reflux (GERD) Y Cancer N Abuse/Domestic Violence N Asthma N Endometriosis N High Cholesterol N Hepatitis N Liver Disease N Heart Disease N Pre-Eclampsia N Osteoporosis N Gynecological History Statement/Question Response On BCP's at Conception? N STIs/STDs N HPV Vaccine N Age at Menarche 12 Current Control Method Hysterectom y Most Recent Mammogram 08/23/2016 Age at First Child 26 Sexually Active? Y Date of Last Pap Smear Sexual Problems? N LMP Definite Obstetrics History GPAL:G 2 P 2 0 0 2 Type Value Multiple Births 0 Full Term 2 Induced 0 Spontaneous 0 Premature 0 Living 2 Ectopics 0 Total 2 Past Encounters Encounter ID Performer Location Encounter Start Date Encounter Closed Date Diagnosis/Indication Diagnosis SNOMED-CT Code Diagnosis ICD10 Code Diagnosis Note [id number] MD Tiana Manuel (RV DETAILER) [address] [place] [address] 08/10/2015 10:47:42 08/10/2015 11:58:04 Gynecologic examination 23564185 Z01.419 Venereal d isease screening 649334070 Z11.3 RTO one week for results. Screening for malignant neoplasm of breast 031260843 Z12.39 Screening for malignant neoplasm of colon 639017085 Z12.11 UTD. Last 2006, good for 10 years. Menopausal flushing 1983 21609 N95.1 Risk with HTN, age > 60, and estrogen therapy d/w pt. at length. Article given to pt. Pt. wants to continue estrogen therapy saying, I believe in quality of life, not length. Potential for decrease quality of life with estrogen & HTN discussed. Pt. said she would take her chances. Rx sent to pharmacy. [id number] MD Carmen Manuelhalto (RV DETAILER) [address] [place] [address] 09/23/2015 11:26:56 09/23/2015 12:06:16 Gynecologic examination 37420139 Z01.419 Pt. had hysterecto my for benign reasons in 2010. Therefore, no pap needed. RTO PRN + one year for AE. Screening for malignant neoplasm of breast 706963994 Z12.39 Mammogram done 08/23/15 was negative. Repeat one year dwp. Venereal d isease screening 711335927 Z11.3 Vaginal culture was negative for gonorrhea, chlamydia, trichomona s, yeast, and BV, dwp. STD panel was also completely negative. Individual test results d/w pt. [id number] MD Tiana Manuel (RV DETAILER) [address] [place] [address] 08/14/2016 10:27:42 08/14/2016 15:58:31 Gynecologic examination 84023435 Z01.419 Normal exam s/p hysterecto my, dwp. Screening for malignant neoplasm of breast 266288013 Z12.39 Mammogram done 08/23/15 was negative. Order given for this year. Screening for malignant neoplasm of colon 381886898 Z12.11 Last 2006, due for repeat.. Referral generated. Menopausal syndrome 1237 64985 N95.9 Pt. doing well on premarin 0.625 QD. Refill sent. [id number] MD Tiana Manuel (RV DETAILER) [address] [place] [address] 09/04/2017 10:17:15 09/07/2017 11:33:04 Gynecologic examination 99548896 Z01.419 Normal exam s/p hysterecto my for benign reasons, dwp. No paps needed. Screening for malignant neoplasm of breast 172163940 Z12.39 Mammogram done 08/23/16 was negative. Order given for this year. Screening for malignant neoplasm of colon 056391171 Z12.11 Last 2015 or 2016 at [facility]. Good for 5 years Menopausal syndrome 1237 98943 N95.9 Pt. doing well on premarin 0.625 QD. Refill sent. Health Concerns Section Related Observation LastModified by Organization Detai ls LastModified Time None Recorded Concern Status LastModified by Organization Details LastModified Time None Recorded Advance Directives Directive None Recorded Payers Encounter Date Sequence Insurance Name Policy Number Policy Cheney Covered Member ID Cheney Member ID Guarantor Name 08/10/2015 1 [facility] (MEDICARE REPLACEMENT/ ADVANTAGE - HMO) [id number] Bell Perez [id number] Bell Perez 08/10/2015 2 [place] [id number] Adithya Perez Jr [id number] Bell Perez 09/23/2015 1 [facility] (MEDICARE REPLACEMENT/ ADVANTAGE - HMO) [id number] Bell Perez [id number] Bell Perez 09/23/2015 2 [place] [id number] Adithya Perez Jr [id number] Bell Perez 08/14/2016 1 [facility] (MEDICARE REPLACEMENT/ ADVANTAGE - HMO) [id number] Bell Perez [id number] Bell Wall[place]est 08/14/2016 2 [place] [id number] Adithya Perez Jr [id number] Bell Perez 09/04/2017 1 [facility] (MEDICARE REPLACEMENT/ ADVANTAGE - HMO) [id number] Bell Perez [id number] Bell Perez 09/04/2017 2 [place] [id number] Adityha Perez Jr [id number] Bell Perez Notes Date Note Type Note Provider Name and Address Organization Details Recorded Time 08/10/2015 text/html Annual GYNReport ed bypatient.History: no gynecologic complaints Menstrual cycle:Normal menses Urinary symptoms:No hematuria; No incontinence Vulva:No genital lesion Vagina:Normal vaginal discharge Breast:No breast pain; No breast lump; No nipple discharge Current Contraception:hyst erectomy Sexual complaints:No sexual complaints; No pain during intercourse; Normal libido Menopausal Symptoms:No menopausal symptoms; Normal vaginal lubrication Psychological symptoms:No depression; No anxiety; No PMDD Preventive measures:Encourage self breast examination; Encourage regular exercise; Encourage no tobacco use; Encourage regular mammograms starting age 40; Needs to schedule mammogram; Up to date on colonoscopy screening (2006 good for 10 years) Thong Ramos KATI villagomez SI 08/10/2015 12:40:33 09/23/2015 text/html Pt. presents for results of her mammogram and STD testing done 08/10/15 at her AE. She has no complaints. Thong Ramos KATI villagomez SIConnie 12/13/2015 14:11:55 08/14/2016 text/html Annual GYNReport ed bypatient.Menstrua l cycle:Normal menses Urinary symptoms:No hematuria; No incontinence Vulva:No genital lesion Vagina:Normal vaginal discharge Breast:No breast pain; No breast lump; No nipple discharge Current Contraception:hyst erectomy Sexual complaints:No sexual complaints; No pain during intercourse; Normal libido Menopausal Symptoms:No menopausal symptoms; Normal vaginal lubrication Psychological symptoms:No depression; No anxiety; No PMDD Preventive measures:Encourage self breast examination; Encourage regular exercise; Encourage no tobacco use; Encourage regular mammograms starting age 40; Needs to schedule colonoscopy (Rohit. Dr. Yost) KATI Jeffery SIConnie 08/14/2016 11:24:25 09/04/2017 text/html Annual GYNReport ed bypatient.Menstrua l cycle:Normal menses Urinary symptoms:No hematuria; No incontinence Vulva:No genital lesion Vagina:Normal vaginal discharge Breast:No breast pain; No breast lump; No nipple discharge Current Contraception:hyst erectomy Sexual complaints:No sexual complaints; No pain during intercourse; Normal libido Menopausal Symptoms:No menopausal symptoms; Normal vaginal lubrication Psychological symptoms:No depression; No anxiety; No PMDD Preventive measures:Encourage self breast examination; Encourage regular exercise; Encourage no tobacco use; Encourage regular mammograms starting age 40; Needs to schedule mammogram; Up to date on colonoscopy screening Tohng KATI Vargas SI 09/04/2017 14:11:50 OBGyn Episode Ob Episode Information Episode Created Date Number of Fetuses Patient Bloodtype Patient rh Status Prepregnancy Weight lbs Domestic Partner Domestic Partner Phone Father Name [employer] Coordinator Status 08/10/19 16 1 CLOSED Fetus Data First Name Last Name Admitted to NICU Weight (g) Sex Living Outcome Pediatric Complications Fetus ID Race Codes Race Delivery Type 3203.49 35 F Full Term [id number] Vaginal Alexi Calculation Initial Alexi Date Initial Exam Date Initial Exam Provider Initial Ultrasound Date Last Menstrual Period Date Ultra Sound Weeks Gestation 0 Eighteen To Twenty Week Alexi Update Ultra Sound Date Fundal Height At Umbil Quickening Date Ultra Sound Latest Weeks Gestation Final Alexi Confirmed By Final Alexi Confirmed Date Final Alexi Date Ultra Sound Latest Days Gestation 0 0 Menstrual History Last Menstrual Date Menses Monthly On Bcp Conception Prior Menses Frequency Hcg Plus Date Menarche Onset Age Delivery Information Delivery Date Delivery Type Labor Anesthesia Weeks Gestation Incision Type Labor Labor Length Hrs Delivered By Post Complications Tubal Sterilization Discharge Date Comments 2 Discharge Information Feeding Method Contraceptive Method Maternal HG B and HCT Levels Ob Episode Information Episode Created Date Number of Fetuses Patient Bloodtype Patient rh Status Prepregnancy Weight lbs Domestic Partner Domestic Partner Phone Father Name [employer] Safety Program Coordinator Status 08/10/19 16 1 CLOSED Fetus Data First Name Last Name Admitted to NICU Weight (g) Sex Living Outcome Pediatric Complications Fetus ID Race Codes Race Delivery Type 3118.44 5 F Full Term [id number] V[address]inal Alexi Calculation Initial Alexi Date Initial Exam Date Initial Exam Provider Initial Ultrasound Date Last Menstrual Period Date Ultra Sound Weeks Gestation 0 Eighteen To Twenty Week Alexi Update Ultra Sound Date Fundal Height At Umbil Quickening Date Ultra Sound Latest Weeks Gestation Final Alexi Confirmed By Final Alexi Confirmed Date Final Alexi Date Ultra Sound Latest Days Gestation 0 0 Menstrual History Last Menstrual Date Menses Monthly On Bcp Conception Prior Menses Frequency Hcg Plus Date Menarche Onset Age Delivery Information Delivery Date Delivery Type Labor Anesthesia Weeks Gestation Incision Type Labor Labor Length Hrs Delivered By Post Complications Tubal Sterilization Discharge Date Comments 1 Discharge Information Feeding Method Contraceptive Method Maternal HG B and HCT Levels
--- OUTSIDE RECORDS SUMMARY | 2024-09-17 11:24 | XMS_ITS | Continuity of Care Document ---
Author Organization [facility] Address [address] [place] [address] Phone Care Team Providers Care Icing Coater Name Role Phone Muly OD OD, Vic Unavailable Unavailabl e Advance Directives Directive Yes / No Effective Date File Name No Information Encounters Encounter Description Practice Location Reason(s) For Visit Diagnoses Date Provider Providers Copied on Encounter [facility], [address], [place], [place], [id number], [place] tel:[phone] Letty Ornelasagustin No Information [address] OD Vic. [address], [place], [id number], [place]. tel:[phone] Family History Family Member Type Diagnosis Age [...]
--- OUTSIDE RECORDS SUMMARY | 2024-09-17 11:24 | XMS_ITS | Encounter Summary ---
Author Organization [facility] Address [address] [place] [address] Care Team Providers Care Emergency Management System Director Name Role Phone Jade Noel Primary Care Provid er Encounter Details Date Type Department Care Team (Late st Contact Info) Description 01/16/2022 Social Work [facility] Social Work [address] [place] [phone] Bobbi Rodney LCSW Social History Tobacco Use Types Packs/Day Years Used Date Smoking Tobacco: Former Cigarettes Smokeless Tobacco: Never Humiliation, Afraid, Rape, and Kick questionnair e [...] week 01/19/2022 How often do you attend [facility] or faith services? 1 to 4 times per year 01/19/2022 Do you belong to any clubs o r organizations such as lutheran groups, unions, fraternal or athletic groups, or [...] and heating? Not hard at all 01/19/2022 [facility] - Occupational [...] place to sleep or slept in a penitentiary (including now)? 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 No 01/19/2022 11:15 AM Bobbi Hebert LCS W Within the last year, have y ou been afraid of your partner or ex-partner? No 01/19/2022 11:15 AM Bobbi Hebert LCS W Within the last year, have y ou been raped or forced to have any kind of sexual activity by your partner or ex-partner? No 01/19/2022 11:15 AM Bobbi Hebert LCS W Within the last year, have y ou been kicked, hit, slapped, or otherwise physically hurt by your partner or ex-partner? No 01/19/2022 11:15 AM Bobbi Hebert LCS W * Question Answer Date of Assessment Author Q1: How often do you have a drink containing alcohol? Never 01/19/2022 11:15 AM Bobbi Hebert LCS W Q3: How often do you have si x or more drinks on one occasion? Never 01/19/2022 11:15 AM Mari Hebert LCSW documented as of this encounter Plan of Treatment Not on file documented as of this encounter Visit Diagnoses Not on filedocumented in this encounter Care Teams Emergency Management System Director Relationship Specialty Start Date End Date Jade Noel PA PCP - General 11/30/21 documented as of this encounter
--- OUTSIDE RECORDS SUMMARY | 2024-09-17 11:24 | XMS_ITS | Patient Health Record ---
Author Organization [facility] Address [address] [place] [address] Care Team Providers Care Liquefied Natural Gas Operator Name Role Phone Aiyana Parsons MD Primary Care Provider UnavailMaribel Hernandes Unavailable [phone] Migration, Provider Unavailable Unavailable Allergies No Known [...] Problem Status W/U Status Risk Notes Problem [id number] ALFONSO (generalized anxiety disorder) (F41.1) Active confirmed Problem 931794318 MDD (major depressive disorder), recurrent episode, mild (F33.0) Active confirmed Vital Signs Heart Rate 89 /min 10/23/2023 Blood pressure diastolic 83 mm Hg 10/23/2023 Weight-kg 73.57 kg 10/23/2023 Blood pressure systolic 132 mm Hg 10/23/2023 Weight 162.2 lbs 10/23/2023 Encounters Encounter Location Date Provider Diagnosis [facility] [address] [place] [address] 10/23/2023 Maribel Dubon MDD (major depressive disorder), recurrent episode, mild F33.0 and ALFONSO (generalized anxiety disorder) F41.1 [facility] [address] [place] [address] 04/29/2024 Maribel Dubon MDD (major depressive disorder), recurrent episode, mild F33.0 and ALFONSO (generalized anxiety disorder) F41.1 [facility] [address] [place] [address] 10/06/2023 Provider Migration [place] [address] [facility] [address] [facility] [address] [place] [address] 10/07/2023 Provider Migration Assessments Encounter Date Diagnosis [...] effects of psychotropic medications. -Crisis prevention hotline 748. Plan Of Treatment Pending Test Test Name Order Date UDT 10/23/2023 Next Appt Details Provider Name:Maribel Dubon, 10/28/2024 01:00:00 PM, [address] [facility] [facility] [address] [facility] [address], [place], [address], Insurance Providers Payer Name Payer Address Payer Phone Subscriber Number Group Number Insured Name Patient Relationship to Insured Coverage Start Date Coverage End Date Aetna Medicare Replaceme nt/Advant age - Ppo [address] [place] [address] [id number] MERLIN MADDOX Self - patient is the insured [facility] [address] [place] [address] [id number] MERLIN MADDOX Self - patient is the insured Medical (General) History Medical History History ICD Code Eye enucleation s/p retinal detachment Surgical History Surgery Date(Month/Year) hysterectomy
== END 2024-09-17 10:16 | disposition home or self-care (01) ==
LOC: ANHIMG 10:15
PROVIDERS: PCP Family Medicine; Visit Provider Student in an Organized Health Care Education/Training Program
DX: N63.13 Unspecified lump in the right breast, lower outer quadrant (principal)
CPT/HCPCS: 76642

== ENCOUNTER → 2025-01-06 16:59 | Outpatient (CLI) | payer MEDICARE, BC, SELFPAY ==
--- NOTE | ~2025-01-06 | XR_ITS ---
EXAMINATION: XR chest 2V 01/06/2025 17:37 INDICATION: Chest pain PROCEDURE: 2 view chest COMPARISON: No prior studies for comparison. FINDINGS: The lungs are clear. The cardiomediastinal silhouette is within normal limits. There are no pleural effusions. There is no pneumothorax suspected. IMPRESSION: 1: NO ACUTE CARDIOPULMONARY DISEASE. Reviewed, dictated and finalized at location A.
--- NOTE | ~2025-01-06 | XR_ITS ---
XR thoracic spine 3V 01/06/2025 17:38 Indication: Radiculopathy Procedure: 5 views thoracic spine Comparison: No prior studies for comparison. Findings: There is mild dextrocurvature of the thoracic spine. No paraspinal soft tissue abnormality. Vertebral body heights are maintained. There are surgical fusion changes at C4-C6. There are fusion changes at L4 S1 as well. There are cholecystectomy clips. No acute fracture, subluxation or dislocation. There is mild dextrocurvature of the lower thoracic spine. Impression: 1: No significant abnormality of the thoracic spine. Reviewed, dictated and finalized at location A. Impression: 1: No significant abnormality of the thoracic spine.
== END ==
LOC: EXPBRAD 17:35 → EXPBETH 17:42 → EXPBRAD 18:08
PROVIDERS: PCP Family Medicine; Visit Provider Family Medicine
DX: M54.14 Radiculopathy, thoracic region (principal); R07.89 Other chest pain; N64.4 Mastodynia; R92.8 Other abnormal and inconclusive findings on diagnostic imaging of breast
CPT/HCPCS: 71046; 72072

== ENCOUNTER 2025-01-30 10:06 | Outpatient (CLI) | payer MEDICARE, BC, SELFPAY ==
--- NOTE | ~2025-01-30 | MMUS_ITS ---
EXAMINATION: MM diagnostic dee BI w nicky, US breast LT limited INDICATION: 69-year old female; Nonfocal LEFT Breast pain lower outer quadrant location. Prior history of bilateral reduction surgery in July 2022. COMPARISON: 01/06/2025 through 09/21/2020 TECHNIQUE: Full field digital CC, MLO and ML views of Both breasts were obtained with computer-aided detection to assist in interpretation of the study. MAMMOGRAM FINDINGS: There are scattered areas of fibroglandular density. There are no suspicious masses, calcifications, architectural distortion or other abnormalities in Both breasts. Postsurgical changes to reflects reduction surgery seen bilaterally are unchanged. No mammographic abnormality correlates to the area of breast pain. LEFT BREAST ULTRASOUND FINDINGS: Targeted ultrasound at the area of the patient's pain in the lower outer Left breast reveals no discrete cystic or solid lesions . IMPRESSION: No mammographic evidence of malignancy in the BILATERAL breast. No mammographic or sonographic abnormality correlates to the area of LEFT pain. RECOMMENDATIONS: 1. Medical management of patient's breast pain. 2. If the patient has high risk factors for developing breast cancers such as, but not limited to dense breasts, positive gene markers, first degree relative with breast cancer which is not tested for Gene markers, or greater than 20% lifetime risk of developing breast cancer, supplemental breast MRI screening (ultrasound if MRI is contraindicated), in addition to annual screening mammography, should be considered and discussed with the patient. BI-RADS 2, BENIGN Reviewed, dictated and finalized at location B. IMPRESSION: No mammographic evidence of malignancy in the BILATERAL breast. No mammographic or sonographic abnormality correlates to the area of LEFT pain. RECOMMENDATIONS: 1. Medical management of patient's breast pain. 2. If the patient has high risk factors for developing breast cancers such as, but not limited to dense breasts, positive gene markers, first degree relative with breast cancer which is not tested for Gene markers, or greater than 20% li fetime risk of developing breast cancer, supplemental breast MRI screening (ult rasound if MRI is contraindicated), in addition to annual screening mammography , should be considered and discussed with the patient. BI-RADS 2, BENIGN
--- OUTSIDE RECORDS SUMMARY | 2025-01-30 10:52 | XMS_ITS | Clinical Summary ---
Author Organization [facility] Address [address] [place] [address] Care Team Providers Care Machine Turner Name Role Phone Aiyana Parsons MD Primary Care Provider [phone] Allergies No known active allergies Medications estrogens, [...] Date Diagnosed Date Cervical spinal stenosis 06/23/2024 Family History Medical History Relation Comments Cancer [...] Sex Assigned at Female 06/23/2024 6:40 AM CHAIN CARRIER Legal Sex Female 10:02 PM CHAIN CARRIER Gender Identity Not on file Sexual Orientation Not on file Last Filed Vital Signs Vital Sign Reading Time Taken Comments Blood Pressure 137/75 06/23/2024 1:27 PM CHAIN CARRIER Pulse 79 06/23/2024 1:27 PM CHAIN CARRIER Temperature 36 C (96.8 F) 06/23/2024 11:15 AM CHAIN CARRIER Respiratory Rate 18 06/23/2024 1:27 PM CHAIN CARRIER Oxygen Saturation 95% 06/23/2024 1:27 PM CHAIN CARRIER Inhaled Oxygen Concentration - - Weight 72.6 kg (160 lb) 06/16/2024 5:23 PM CHAIN CARRIER Height 165.1 cm (5' 5) 06/16/2024 5:23 PM CHAIN CARRIER Body Mass Index 26.63 06/16/2024 5:23 PM CHAIN CARRIER Plan of Treatment Health Maintenance Due Date Last Done Comments Colorectal Cancer Screening Colonoscopy (10 Years) 1955 Hepatitis C 1973 Annual Medicare Wellness Visit 2020 Dexa Scan (General) 2020 Mammogram Screening 11/11/2021 11/12/2019, 09/28/2017, 08/23/2016, Additional history exists COVID-19 Vaccine ( season) 2025 01/23/2024, 02/25/2023, 03/20/2022, Additional history exists DTaP, [...] this topic Medical Devices Implanted Type Area Medical Administrative Technician Device Identifier Shelf Expiration Date Model / Serial / Lot Graft Bone Lord Cortical Can Asr Medtronic 6 X 14 X 11 - [id number] Implanted:Qty: 1 on 06/23/2024 by Louie Bates MD at [facility] N/A: Spine Cervical [employer] 10/10/2026 [id number] / [id number] / Description:LOT: [id number] Graft Bone Lord Cortical Can Asr Medtronic 6 X 14 X 11 - [id number] Implanted:Qty: 1 on 06/23/2024 by Louie Bates MD at [facility] N/A: Spine Cervical [employer] 10/10/2026 [id number] / [id number] / Description:LOT: [id number] Graft Bone Lord Cortical Can Asr Medtronic 6 X 14 X 11 - [id number] Implanted:Qty: 1 on 06/23/2024 by Louie Bates MD at [facility] N/A: Spine Cervical [employer] 11/29/2026 [id number] / [id number] / Description:LOT: [id number] 55mm Three-Level Plate Implanted:Qty: 1 on 06/23/2024 by Louie Bates MD at [facility] N/A: Spine Cervical [employer] [id number] / / 3.5 X 14mm Sd Screw Implanted:Qty: 8 on 06/23/2024 by Louie Bates MD at [facility] N/A: Spine Cervical [employer] [id number] / / Explanted Type Area Medical Administrative Technician Device Identifier Shelf Expiration Date Model / Serial / Lot Drill Bit Medtronic - [id number] Explanted:Qty: 1 on 06/23/2024 by Louie Bates MD at [facility] Drill N/A: Spine Cervical [employer] 02/25/2029 [id number] / / [id number] Pin Distraction Medline 12mm - [id number] Explanted:Qty: 2 on 06/23/2024 by Louie Bates MD at [facility] Pin N/A: Spine Cervical [place] [id number] / / Insurance AETNA Care Teams Machine Turner Relationship Specialty Start Date End Date Aiyana Parsons MD [address] [place] [address] PCP - General FAMILY PRACTICE 06/16/24
--- OUTSIDE RECORDS SUMMARY | 2025-01-30 10:52 | XMS_ITS | Clinical Summary ---
Author Organization [facility] Address [address] [facility] [place] [address] Care Team Providers Care Women'S Activities Adviser Name Role Phone Kj Payne MD Primary Care Provider [phone] Bhavik Lawson MD Unavailable Source Comments [facility],non-owned Affiliates and Associated Physician Practices is amultiple site organization consisting of ambulatory clinics and hospital sitesin [place], [place], [place] and [place]. This disclosure is being madepursuant to the Care Everywhere program and may not contain all information available regarding this patient. Last updated 18.PLAYD8 [facility] Allergies No known active allergies Medications * [...] 3:47 PM CDT Height 172.7 cm (5' 8) 09/22/2013 3:47 PM CDT Body Mass Index [...] 2005 ZOSTER VACCINE (1 of 2) 2005 DEPRESSION SCREENING 05/21/2024 COVID-19 VACCINE (1 - 2023-2 5 season) 2025 INFLUENZA VACCINE (#1) 2025 Respiratory Syncytial Virus (RSV) Vaccine Pt: [...] age to complete this topic Insurance MEDICARE [employer] [facility] Care Teams Women'S Activities Adviser Relationship Specialty Start Date End Date Kj Payne MD [address] [place] [address] PCP - General Family Medicine 09/22/13 [place] [address] [place] [address] Orthopedic Surgery 09/22/13
--- OUTSIDE RECORDS SUMMARY | 2025-01-30 10:52 | XMS_ITS | Patient Health Record ---
Author Organization [facility] Address [facility] [facility] [address] [place] [address] Care Team Providers Care Refuse Driver Name Role Phone Issa PHILLIPS, Aiyana Primary Care Provider UnavailMaribel Reynolds Unavailable [phone] Allergies No Known Allergies Results Component Value Reference Range Notes UDT Reviewed date:10/28/2024 02:00:13 PM Interpretation: Performing Lab: Notes/Report: THC N 0 - 50 ng/ml Cocaine N 0 - 300 ng/ml Amphetamine N 0 - 1000 ng/ml Buprenorphine (BUP) N 0 - 10 ng/ml Secobarbital (Bar) N 0 - 300 ng/ml Oxazepam (BZO) P 0 - 300 ng/ml 0-hzdidqgiqx-4,5-zjzlkgon-2,3-diphenylpyrrolidine (ERIC P) N 0 - 300 ng/ml Methamphetamine (MET) N 0 - 1000 ng/ml Methylenedioxymethamphetamine (MDMA) N 0 - 500 ng/ml Morphine (MOP 300/FTN1840) N 0 - 300 ng/ml Methadone (MTD) N 0 - 300 ng/ml Phencyclidine (PCP) N 0 - 25 ng/ml Nortriptyline (TCA) N 0 - 1000 ng/ml Oxycodone N 0 - 300 ng/ml x N 0 - 300 ng/ml Reason For Referral No Information Medications Medication SIG (Take, Route, Frequency, Duration) Notes Start Date End Date Status Lisinopril 10 MG Tablet 1 tablet Orally Once a day Active Venlafaxine HCl 75 MG Tablet TAKE 1 TABLET BY MOUTH DAILY WITH FOOD; Duration: 90 Active LORazepam 1 MG Tablet 1 tablet Oral twic e daily; Duration: 30 days 10/28/2024 Active Social History Tobacco Use: Social History Observation Description Date Details (start date - stop date) Never Smoker NA - NA Sex Assigned At : Social History Observation Description Sex Assigned At Female Social History Miscellaneous: Social Info Question Answer Notes Advance Care Planning Advance Directive Living Will Household: Social Info Question Answer Notes Household Marital status: Number of children in household: 2 adult children Drug/Alcohol: Social Info Question Answer Notes Drugs Have you used drugs other than those for medical reasons in the past 12 months? No Tobacco Use: Social Info Question Answer Notes Tobacco Control (Standard) Tobacco use: Nonsmoker Additional Details Category Social Info Options Details Miscellaneous: Occupation: retired Problems Problem Type SNOMED Code ICD Code Onset Dates Problem Status W/U Status Risk Notes Problem Generalized anxiety disorder (80133622) ALFONSO (generalized anxiety disorder) (F41.1) Active confirmed Problem Mild recurrent major depression (77540050) MDD (major depressive disorder), recurrent episode, mild (F33.0) Active confirmed Vital Signs Heart Rate 94 /min 10/28/2024 Height-cm 165.1 cm 10/28/2024 Blood pressure diastolic 74 mm Hg 10/28/2024 Weight-kg 73.48 kg 10/28/2024 Height 65 in 10/28/2024 Blood pressure systolic 133 mm Hg 10/28/2024 Weight 162 lbs 10/28/2024 BMI 26.96 kg/m2 10/28/2024 Encounters Encounter Location Date Provider Diagnosis [facility] [address] [place] [address] 04/29/2024 Maribel Kurilla MDD (major depressiv e disorder), recurrent episode, mild F33.0 and ALFONSO (generalized anxiety disorder) F41.1 [facility] [address] [place] [address] 10/28/2024 Maribel Kurilla MDD (major depressiv e disorder), recurrent episode, mild F33.0 ; ALFONSO (generalized anxiety disorder) F41.1 ; Encounter for screening for cardiovascular disorders Z13.6 and Negative depression screening Z13.31 Assessments Encounter Date Diagnosis (ICD Code) Assessment Notes Treatment Notes Treatment Clinical Notes Section Notes 04/29/2024 MDD (major depressive disorder), recurrent episode, mild (ICD-10 - F33.0) SSRI/SNRI side effects discussed including but not limited to, gastric upset, nausea, vomiting, diarrhea and/or constipation, weight changes, sexual side effects including loss of libido, increased suicidal thoughts/behavio rs in children and young adults, and serotonin syndrome. 10/28/2024 MDD (major depressive disorder), recurrent episode, mild (ICD-10 - F33.0) SSRI/SNRI side effects discussed including but not limited to, gastric upset, nausea, vomiting, diarrhea and/or constipation, weight changes, sexual side effects including loss of libido, increased suicidal thoughts/behavio rs in children and young adults, and serotonin syndrome. 10/28/2024 ALFONSO (generalized anxiety disorder) (ICD-10 - F41.1) 04/29/2024 ALFONSO (generalized anxiety disorder) (ICD-10 - F41.1) 10/28/2024 Encounter for screening for cardiovascular disorders (ICD-10 - Z13.6) 10/28/2024 Negative depression screening (ICD-10 - Z13.31) 04/29/2024 Other Overall stable, cont current medications. [...] of psychotropic medications. -Crisis prevention hotline 988. 10/28/2024 Other Stable on current medication regimen, continue at current doses. -Refills sent in today -No concerns today Patient educated on all medications including potential [...] UDT 10/23/2023 Next Appt Details Provider Name:Maribel Alvarez danica, 04/28/2025 01:00:00 PM, [address], [facility] [address], [place], [address], Insurance Providers Payer Name Payer Address Payer Phone Subscriber Number Group Number Insured Name Patient Relationship to Insured Coverage Start Date Coverage End Date Aetna Medicare Replaceme nt/Advant age - Ppo [address] [place] [address] [id number] MERLIN MADDOX Self - patient is the insured [facility] [address] [place] [address] [id number] MERLIN MADDOX Self - patient is the insured Medical (General) History Medical History History ICD Code Eye enucleation s/p retinal detachment Surgical History Surgery Date(Month/Year) hysterectomy neck fusion 2024
--- OUTSIDE RECORDS SUMMARY | 2025-01-30 10:52 | XMS_ITS | Encounter Summary ---
Author Organization [facility] Address [address] [place] [address] Care Team Providers Care Adzing And Boring Machine Feeder Name Role Phone Aiyana Parsons MD Primary Care Provider [phone] Encounter Details Date Type Department Care Team (Late st Contact Info) Description 08/04/2017 Abstract [facility] CONVERSION [address] [place] [address] , Generic ConversionMD Social History Tobacco Use Types Packs/Day Years Used Date Smoking Tobacco: Never Assessed Comments Unknown Sex and Gender Information Value Date Recorded Sex Assigned at Female 06/23/2024 6:40 AM PATHOLOGY MANAGER Legal Sex Female 10:02 PM PATHOLOGY MANAGER Gender Identity Not on file Sexual Orientation Not on file documented as of this encounter Plan of Treatment Not on file documented as of this encounter Visit Diagnoses Not on filedocumented in this encounter Care Teams Adzing And Boring Machine Feeder Relationship Specialty Start Date End Date Aiyana Parsons MD [address] [place] [address] PCP - General FAMILY PRACTICE 06/16/24 documented as of this encounter
--- OUTSIDE RECORDS SUMMARY | 2025-01-30 10:52 | XMS_ITS | Patient Health Record ---
Author Organization [facility] Address [address] [place] [id number] Care Team Providers Care Gun Fertilizer Name Role Phone Rick Blanco Primary Care Provider Allergies No Known Allergies Reason For Referral No Information Medications Medication SIG (Take, Route, Frequency, Duration) Notes Start Date End Date Status venlafaxine Active LORazepam Active quinapril Active HCTZ Active Calcium 500+D Active Claritin Active multivitamin Active Premarin Active Problems Problem Type SNOMED Code ICD Code Onset Dates Problem Status W/U Status Risk Notes Problem Gastro-esophageal reflux disease without esophagitis (796234299) Gastro-esophagea l reflux disease without esophagitis (K21.9) Active confirmed Problem Hyperlipidemia (17628744) Hyperlipidemia, unspecified (E78.5) Active confirmed Problem Essential hypertension (83225525) Essential (primary) hypertension (I10) Active confirmed Problem Seasonal allergic rhinitis (846065386) Other seasonal allergic rhinitis (J30.2) Active confirmed Problem Fatigue (51903429) Other fatigue (R53.83) Active confirmed Problem 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 [address] [place] [address] [id number] Bell Perez Self - patient is the insured [facility] [address] [place] [address] [phone] [id number] Adithya Perez Spouse - patient is the spouse of the insured Medical (General) History Medical History History ICD Code Other fatigue R53.83 Essential (primary) hypertension I10 Gastro-esophageal reflux disease without esophagitis K21.9 Hyperlipidemia, unspecified E78.5 Other seasonal allergic rhinitis J30.2 Prediabetes R73.03 Other specified depressive episodes F32. 89 Surgical History Surgery Date(Month/Year) Tonsilectomy Breast reduction Tubal ligation Cholecystectomy Hysterectomy Eye surgery?? Knee replacment ?? Double spine fusion
--- OUTSIDE RECORDS SUMMARY | 2025-01-30 10:52 | XMS_ITS | Clinical Summary ---
Author Organization [facility] Address [address] [place] [address] Care Team Providers Care Residential Building Inspector Name Role Phone Jade Noel Primary Care [...] or ex-partner? No 01/19/2022 Social Connection and Isolation Panel Answer Date Recorded In a typical week, how many times do you talk on the phone with family, friends, or neighbors? More than three times a week 01/19/2022 How often do you get togethe r with friends or relatives? Once a week 01/19/2022 How often do you attend chur or sabianist services? 1 to 4 times per year 01/19/2022 Do you belong to any clubs o r organizations such as muslim groups, unions, fraternal or athletic groups, or [...] and heating? Not hard at all 01/19/2022 [facility] of Occupat ional Health - Occupational [...] place to sleep or slept in a residential (including now)? No 01/19/2022 Comments No Sex and Gender Information Value Date Recorded Sex Assigned at Not on file Legal Sex Female 4:11 PM WAREHOUSE UNLOADER Gender Identity Not on file Sexual Orientation [...] 12:03 PM CDT Height 161.3 cm (5' 3.5) 01/18/2022 10:20 AM CD T Body Mass Index 29.15 01/16/2022 12:03 PM CDT Plan of Treatment Health Maintenance Due Date Last Done Comments Colon Cancer Screening-Colonoscopy 1955 Depression Screening 1955 Fall Risk Assessment 1955 Hepatitis C Screening 1955 Osteoporosis Screening-Bone Density Scan 1955 Hepatitis B Screening 1973 Well Visit 65+ 2020 Pneumococcal vaccine 65+ (2 of 2 - PCV20 or PCV21) 04/12/2022 04/12/2021 Breast Cancer Screening-Mammogram 12/15/2022 12/15/2021, 11/12/2019, 09/28/2017, Additional history exists Covid-19 Vaccine (3 - 2024-2 6 season) 2025 10/07/2021, 02/11/2021 Influenza Vaccine (#1) 2025 , 01/21/2020, 01/24/2019, Additional history exists DTaP/Tdap/Td Vaccine [...] Most Recently Relevant to Health Maintenance Insurance [id number] MEDICARE ADVANTAGE [facility] MEDICARE MEDICARE [employer] OPEN ACCESS ANTH ACCESS BLUE ACCESS OOS MEDICARE ADVANTAGE ANTH ACCESS BLUE ACCESS OOS MEDICARE ADVANTAGE [facility] ACCESS Care Teams Residential Building Inspector Relationship Specialty Start Date End Date Jade Noel PA [facility] - General 11/30/21
--- OUTSIDE RECORDS SUMMARY | 2025-01-30 10:52 | XMS_ITS | Encounter Summary ---
Author Organization [facility] Healthcare Address [address] [place] [address] Care Team Providers Care Paper Cutting Machine Operator Name Role Phone Jade Noel Primary Care Provid er Encounter Details Date Type Department Care Team (Late st Contact Info) Description 01/16/2022 Social Work Research [facility] Social Work [address] [place] [id number] Bobbi Rodney LCSW Social History Tobacco Use [...] week 01/19/2022 How often do you attend [facility] or congregation services? 1 to 4 times per year 01/19/2022 Do you belong to any clubs o r organizations such as taoist groups, unions, fraternal or athletic groups, or [...] and heating? Not hard at all 01/19/2022 [facility] of Occupat ional Health - Occupational Stress [...] place to sleep or slept in a usp (including now)? No 01/19/2022 Comments No Sex and Gender Information Value Date Recorded Sex Assigned at Not on file Legal Sex Female 4:11 PM MECHANICAL PRODUCT ENGINEER Gender Identity Not on file Sexual Orientation Not on file documented as of this encounter Functional Status documented as of this encounter Plan of Treatment Not on file documented as of this encounter Visit Diagnoses Not on filedocumented in this encounter Care Teams Paper Cutting Machine Operator Relationship Specialty Start Date End Date Jade Noel PA PCP - General 11/30/21 documented as of this encounter
== END 2025-01-30 10:07 | disposition home or self-care (01) ==
PROVIDERS: PCP Family Medicine; Visit Provider Family Medicine
DX: R92.8 Other abnormal and inconclusive findings on diagnostic imaging of breast (principal); N64.4 Mastodynia
CPT/HCPCS: 76642; 77062; 77066; G0279

== ENCOUNTER 2025-04-09 01:12 | Day surgery (SDC) | payer MEDICARE, BC, SELFPAY ==
--- OUTSIDE RECORDS SUMMARY | 1999-07-06 12:30 | XMS_ITS | Continuity of Care Document ---
Author Organization [facility] Address [address] [place] [address] Phone Care Team Providers Care Structural Steel Fitter Name Role Phone Muly OD OD, Vic Unavailable Unavailabl e Advance Directives Directive Yes / No Effective Date File Name No Information Encounters Encounter Description Practice Location Reason(s) For Visit Diagnoses Date Provider Providers Copied on Encounter [facility], [address], [place], [place], [id number], [place] tel:[phone] SEC Ashutosh Letty Ornelasagustin No Information 200 0 Mulqueeny OD Vic. [address] [place], [place], [address], [place]. tel:[phone] Family History Family Member Type Diagnosis Age At Onset No Information Payers Payer name Insurance type Covered green party ID Authoriza tion(s) No Information Social History Type Description Quantity Date Captured Comments Sex Female Smoking Status No Information Chief Complaint And Reason For Visit No Information Reason For Referral Reason For Referral No Information History Of Present Illness Encounter Date Complaint History Of Prese nt Illness No Information Functional Status Date Functional Assessmen t No Information Instructions Date Instruction Additional Infor mation No Information Assessments Type Assessment Date No Information Patient Care Teams Name Effective Dates (start - stop) Status Members No Information
--- OUTSIDE RECORDS SUMMARY | 1999-07-06 12:30 | XMS_ITS | Continuity of Care Document ---
Author Organization [facility] Address [address] [place] [address] Phone Care Team Providers Care Rigger Name Role Phone Muly OD OD, Vic Unavailable Unavailabl e Advance Directives Directive Yes / No Effective Date File Name No Information Encounters Encounter Description Practice Location Reason(s) For Visit Diagnoses Date Provider Providers Copied on Encounter [facility], [address], [place], [place], [address], [place] tel:[phone] SEC Ashutosh Letty Ornelasagustin No Information 200 0 Mulqueeny OD Vic. [address] [place], [place], [address], [place]. tel:[phone] Family History Family Member Type Diagnosis Age At Onset No Information Payers Payer name Insurance type Covered republican ID Authoriza tion(s) No Information Social History [...]
--- OUTSIDE RECORDS SUMMARY | 1999-07-06 12:30 | XMS_ITS | Continuity of Care Document ---
Author Organization [facility] Address [address] [place] [address] Phone Care Team Providers Care Insulation Cutter And Former Name Role Phone Muly OD OD, Vic Unavailable Unavailabl e Advance Directives Directive Yes / No Effective Date File Name No Information Encounters Encounter Description Practice Location Reason(s) For Visit Diagnoses Date Provider Providers Copied on Encounter [facility], [address], [place], [place], [id number], [place] tel:[phone] SEC Ashutosh Letty Ornelasagustin No Information 200 0 Mulqueeny OD Vic. [address] [place], [place], [address], [place]. tel:[phone] Family History Family Member Type Diagnosis Age At Onset No Information Payers Payer name Insurance type Covered libertarian ID Authoriza tion(s) No Information Social History [...]
--- OUTSIDE RECORDS SUMMARY | 1999-07-06 12:30 | XMS_ITS | Continuity of Care Document ---
Author Organization [facility] Address [address] [facility] [address] [place] [address] Phone Care Team Providers Care Eggs Inspector Name Role Phone Muly OD OD, Vic Unavailable Unavailabl e Advance Directives Directive Yes / No Effective Date File Name No Information Encounters Encounter Description Practice Location Reason(s) For Visit Diagnoses Date Provider Providers Copied on Encounter [facility], [address], [place], [place], [address], [place] tel:[phone] SEC Ashutosh Letty Ornelasagustin No Information 200 0 Mulqueeny OD Vic. [address] [place], [place], [address], [place]. tel:[phone] Family History Family Member Type Diagnosis Age At Onset No Information Payers Payer name Insurance type Covered alliance party ID Authoriza tion(s) No Information Social [...]
--- OUTSIDE RECORDS SUMMARY | 1999-07-06 12:30 | XMS_ITS | Continuity of Care Document ---
Author Organization [facility] Address [address] [place] [address] Phone Care Team Providers Care Media Buyer Name Role Phone Muly OD OD, Vic Unavailable Unavailabl e Advance Directives Directive Yes / No Effective Date File Name No Information Encounters Encounter Description Practice Location Reason(s) For Visit Diagnoses Date Provider Providers Copied on Encounter [facility], [address], [place], [place], [id number], [place] tel:[phone] SEC Ashutosh Letty Ornelasagustin No Information 200 0 Mulqueeny OD Vic. [address] [place], [place], [address], [place]. tel:[phone] Family History Family Member Type Diagnosis Age At Onset No Information Payers Payer name Insurance type Covered constitution party ID Authoriza tion(s) No Information Social [...]
--- OUTSIDE RECORDS SUMMARY | 1999-07-06 12:30 | XMS_ITS | Continuity of Care Document ---
Author Organization [facility] Address [address] [place] [address] Phone Care Team Providers Care Protohistorian Name Role Phone Muly OD OD, Vic Unavailable Unavailabl e Advance Directives Directive Yes / No Effective Date File Name No Information Encounters Encounter Description Practice Location Reason(s) For Visit Diagnoses Date Provider Providers Copied on Encounter [facility], [address], [place], [place], [address], [place] tel:[phone] SEC Ashutosh Letty Ornelasagustin No Information 200 0 Mulqueeny OD Vic. [address] [place], [place], [address], [place]. tel:[phone] Family History Family Member Type Diagnosis Age [...]
--- OUTSIDE RECORDS SUMMARY | 1999-07-06 12:30 | XMS_ITS | Continuity of Care Document ---
Author Organization [facility] Address [address] [place] [address] Phone Care Team Providers Care Pants Busheler Name Role Phone Muly OD OD, Vic Unavailable Unavailabl e Advance Directives Directive Yes / No Effective Date File Name No Information Encounters Encounter Description Practice Location Reason(s) For Visit Diagnoses Date Provider Providers Copied on Encounter [facility], [address], [place], [place], [address], [place] tel:[phone] SEC Ashutosh Letty Ornelasagustin No Information 200 0 Mulqueeny OD Vic. [address] [place], [place], [address], [place]. tel:[phone] Family History Family Member Type Diagnosis Age [...]
--- OUTSIDE RECORDS SUMMARY | 2025-04-09 02:08 | XMS_ITS | Clinical Summary ---
Author Organization [facility] Address [address] [place] [address] Care Team Providers Care Tent Worker Name Role Phone Jade Noel Primary Care [...] How often do you attend chur or pentecostalism services? 1 to 4 times per year 01/19/2022 Do you belong to any clubs o r organizations such as yarsanism groups, unions, fraternal or athletic groups, or [...] and heating? Not hard at all 01/19/2022 [facility] of Occupat ional Health - Occupational Stress [...] place to sleep or slept in a jail (including now)? No 01/19/2022 Comments No Sex and Gender Information Value Date Recorded Sex Assigned at Not on file Legal Sex Female 4:11 PM SCREEN PRINTER Gender Identity Not on file Sexual Orientation [...] CDT Plan of Treatment Not on file Insurance UHC MEDICARE ADVANTAGE [facility] MEDICARE MEDICARE [employer] OPEN ACCESS ANTH ACCESS BLUE ACCESS OOS [id number] MEDICARE ADVANTAGE [facility] ACCESS BLUE ACCESS OOS MEDICARE ADVANTAGE [facility] ACCESS Care Teams Tent Worker Relationship Specialty Start Date End Date Jade Noel PA PCP - General 11/30/21
--- OUTSIDE RECORDS SUMMARY | 2025-04-09 02:08 | XMS_ITS | Clinical Summary ---
Author Organization [facility] Address [address] [place] [address] Care Team Providers Care Phthalic Acid Purifier Name Role Phone Aiyana Parsons MD Primary Care Provider [phone] Allergies No known active allergies Medications estrogens, [...] Sex Assigned at Female 06/23/2024 6:40 AM STEAM HAMMER OPERATOR Legal Sex Female 10:02 PM STEAM HAMMER OPERATOR Gender Identity Not on file Sexual Orientation Not on file Last Filed Vital Signs Vital Sign Reading Time Taken Comments Blood Pressure 137/75 06/23/2024 1:27 PM STEAM HAMMER OPERATOR Pulse 79 06/23/2024 1:27 PM STEAM HAMMER OPERATOR Temperature 36 C (96.8 F) 06/23/2024 11:15 AM STEAM HAMMER OPERATOR Respiratory Rate 18 06/23/2024 1:27 PM STEAM HAMMER OPERATOR Oxygen Saturation 95% 06/23/2024 1:27 PM STEAM HAMMER OPERATOR Inhaled Oxygen Concentration - - Weight 72.6 kg (160 lb) 06/16/2024 5:23 PM STEAM HAMMER OPERATOR Height 165.1 cm (5' 5) 06/16/2024 5:23 PM STEAM HAMMER OPERATOR Body Mass Index 26.63 06/16/2024 5:23 PM STEAM HAMMER OPERATOR Plan of Treatment Health Maintenance Due Date Last Done Comments Colorectal Cancer Screening Colonoscopy (10 Years) 1955 Hepatitis C 1973 Annual Medicare Wellness Visit 2020 Dexa Scan (General) 2020 Mammogram Screening 11/11/2021 11/12/2019, 09/28/2017, 08/23/2016, Additional history exists COVID-19 Vaccine ( season) 2025 01/23/2024, 02/25/2023, 03/20/2022, Additional history exists Influenza Adult (#1) 2025 01/23/2024, 02/11/2022, 01/28/2021, Additional history exists DTaP, Tdap and Td Vaccines (3 - Td or Tdap) 12/21/2026 12/21/2016, 08/01/2012, 07/29/2002 Zoster Vaccines Completed 04/04/2020, 02/03/2020 Pneumococcal Vaccine: 50+ Years Completed 02/25/2023, 04/12/2021 RSV Immunization or 60+ Years Completed 03/18/2023 Hepatitis A Vaccines Aged Out No long er eligible based on patient's age to complete this topic Meningococcal B Vaccine Aged Out No l onger eligible based on patient's age to complete this topic Meningococcal Vaccine Aged Out No rhiannon dillon eligible based on patient's age to complete this topic RSV Immunizations Under 20 Months Aged Out No longer eligible based on patient's age to complete this topic Medical Devices Implanted Type Area Video Production Engineer Device Identifier Shelf Expiration Date Model / Serial / Lot Graft Bone Lord Cortical Can Asr Medtronic 6 X 14 X 11 - [id number] Implanted:Qty: 1 on 06/23/2024 by Louie Bates MD at [facility] N/A: Spine Cervical [employer] 10/10/2026 [id number] / [id number] / Description:LOT: [id number] Graft Bone Lord Cortical Can Asr Medtronic 6 X 14 X 11 - [id number] Implanted:Qty: 1 on 06/23/2024 by Louie Bates MD at [facility] N/A: Spine Cervical [employer] 10/10/2026 [id number] / [id number] / Description:LOT: [id number] Graft Bone Lord Cortical Can Asr Medtronic 6 X 14 X 11 - [id number] Implanted:Qty: 1 on 06/23/2024 by Louie Bates MD at [facility] N/A: Spine Cervical [employer] 11/29/2026 [id number] / [id number] / Description:LOT: [id number] 55mm Three-Level Plate Implanted:Qty: 1 on 06/23/2024 by Louie Bates MD at [facility] N/A: Spine Cervical [employer] [id number] / / 3.5 X 14mm Sd Screw Implanted:Qty: 8 on 06/23/2024 by Louie Bates MD at [facility] N/A: Spine Cervical [employer] [id number] / / Explanted Type Area Video Production Engineer Device Identifier Shelf Expiration Date Model / Serial / Lot Drill Bit Medtronic - [id number] Explanted:Qty: 1 on 06/23/2024 by Louie Bates MD at [facility] Drill N/A: Spine Cervical [employer] 02/25/2029 [id number] / / [id number] Pin Distraction Medline 12mm - [id number] Explanted:Qty: 2 on 06/23/2024 by Louie Bates MD at [facility] Pin N/A: Spine Cervical [employer] [id number] / / Insurance [employer] MEDICARE Care Teams Phthalic Acid Purifier Relationship Specialty Start Date End Date Aiyana Parsons MD [address] [place] [address] PCP - General FAMILY PRACTICE 06/16/24
--- OUTSIDE RECORDS SUMMARY | 2025-04-09 02:08 | XMS_ITS | Encounter Summary ---
Author Organization [facility] Address [address] [place] [address] Care Team Providers Care Nursing Home Administrator Name Role Phone Aiyana Parsons MD Primary Care Provider [phone] Encounter Details Date Type Department Care Team (Late st Contact Info) Description 08/04/2017 Abstract [facility] CONVERSION [address] [place] [address] , Generic ConversionMD Social History Tobacco Use Types Packs/Day Years Used Date Smoking Tobacco: Never Assessed Comments Unknown Sex and Gender Information Value Date Recorded Sex Assigned at Female 06/23/2024 6:40 AM PLANISHING HAMMER OPERATOR Legal Sex Female 10:02 PM PLANISHING HAMMER OPERATOR Gender Identity Not on file Sexual Orientation Not on file documented as of this encounter Plan of Treatment Not on file documented as of this encounter Visit Diagnoses Not on filedocumented in this encounter Care Teams Nursing Home Administrator Relationship Specialty Start Date End Date Aiyana Parsons MD [address] [place] [address] PCP - General FAMILY PRACTICE 06/16/24 documented as of this encounter
--- OUTSIDE RECORDS SUMMARY | 2025-04-09 02:09 | XMS_ITS | Clinical Summary ---
Author Organization [facility] Address [address] [place] [address] Care Team Providers Care Manager Hris Name Role Phone Kj Payne MD Primary Care Provider [phone] Bhavik Lawson MD Unavailable Source Comments [facility],non-owned Affiliates and Associated Physician Practices is amultiple site organization consisting of ambulatory clinics and hospital sitesin [place], [place] and [place]. This disclosure is being madepursuant to the Care Everywhere program and may not contain all information available regarding this patient. Last updated [email or web address] [facility] Allergies No known active allergies Medications * [...] DEPRESSION SCREENING 05/21/2024 COVID-19 VACCINE (1 - 2024-2 6 season) 2025 INFLUENZA VACCINE (#1) 2025 Respiratory [...] age to complete this topic Insurance MEDICARE [employer] [facility] Address: [facility] [id number] [place] [address] [facility] Care Teams Manager Hris Relationship Specialty Start Date End Date Kj Payne MD [address] [address] PCP - General Family Medicine 09/22/13 [place] [address] [place] [id number] Orthopedic Surgery 09/22/13
--- OUTSIDE RECORDS SUMMARY | 2025-04-09 02:09 | XMS_ITS | Encounter Summary ---
Author Organization [facility] Healthcare Address [address] [place] [address] Care Team Providers Care Fire Department Marine Engineer Name Role Phone Jade Noel Primary Care Provid er Encounter Details Date Type Department Care Team (Late st Contact Info) Description 01/16/2022 Social Work [facility] Social Work [address] [place] [id number] Bobbi Rodnye LCSW Social History Tobacco Use Types Packs/Day [...] week 01/19/2022 How often do you attend [facility] or mandaeism services? 1 to 4 times per year 01/19/2022 Do you belong to any clubs o r organizations such as anabaptism groups, unions, fraternal or athletic groups, or [...] and heating? Not hard at all 01/19/2022 [facility] of Occupat ional Health - Occupational Stress [...] place to sleep or slept in a care home (including now)? No 01/19/2022 Comments No Sex and Gender Information Value Date Recorded Sex Assigned at Not on file Legal Sex Female 4:11 PM GYNECOLOGIST Gender Identity Not on file Sexual Orientation Not on file documented as of this encounter Functional Status * Alcohol Use Question Answer Date of Assessment Author Q1: [...] on filedocumented in this encounter Care Teams Fire Department Marine Engineer Relationship Specialty Start Date End Date Jade Noel PA PCP - General 11/30/21 documented as of this encounter
--- OUTSIDE RECORDS SUMMARY | 2025-04-09 02:09 | XMS_ITS | Patient Health Record ---
Author Organization [facility] Address [address] [place] [address] Care Team Providers Care Course Instructor Name Role Phone LEENA FISCHER Unavailable Reason For Referral No Information Medications Medication SIG (Take, Route, Frequency, Duration) Notes Start Date End Date Status EPINEPHrine 0.3 MG/0.3ML Solution Auto-injector Injection 08/15/2019 0 Active Sertraline HCl 100 MG Tablet Oral 08/15/2019 0 Active Quinapril HCl 40 mg Tablet Oral 08/15/2019 0 Active hydroCHLOROthiazide 25 MG Tablet Oral 08/15/2019 0 Active AFLURIA QD 2018- (36 MOS UP)(PF)60 MCG (15 MCG X4)/0.5 ML IM SYRINGE *please review for potential update for e-prescription and drug interaction check* 08/15/2019 0 Active Social History Social History Additional Details Category Social Info Options Details Migrated Social History Migrated Social History Smoking Status: Formerly 07/08/2019 Plan Of Treatment No Information Insurance Providers Payer Name Payer Address Payer Phone Subscriber Number Group Number Insured Name Patient Relationship to Insured Coverage Start Date Coverage End Date [facility] [address] [place] [address] [phone] [id number] MERLIN MADDOX Self - patient is the insured [place] of [place] [address] [place] [address] [phone] [id number] YOSI MADDOX JR Spouse - patient is the spouse of the insured Medical (General) History Surgical History Surgery Date(Month/Year) Balloon sinuplasty with Total Ethmoidect ingrid 07/25/2019 Tonsillectomy Hysterectomy
--- OUTSIDE RECORDS SUMMARY | 2025-04-09 02:09 | XMS_ITS | Data Portability ---
Author Organization [facility] Keenan [facility] Address [address] [place] [address] Care Team Providers Care Shuttle Preparation Supervisor Name Role Phone THONG RAMOS Whittling Room Operator ROB SINGH Primary Care Provider BUD ASHFORD Psychiatrist Assessment No assessment recorded. Plan of Treatment Reminders Order Date Submit Date Provider Last Modified By Organization Details Last Modified Time Details Appointments None recorded. Lab pap, IG + CT/NG/TV + reflex HPV (16+18) 2015 016 [email or web address] [facility], [address] [place] [address], [address], [place], [address], 6 16:55:25 RPR (rapid plasma reagin), serum 2015 016 [email or web address] [facility], [address] [place] [address], [facility] [address], [place], [address], 6 12:53:49 HBsAg (hepatitis B surface Ag), EIA, serum 2015 016 [email or web address] [facility], [address] [place] [address], [address], [place], [address], 6 12:53:49 hepatitis C Ab, signal-to- cutoff, serum or plasma 2015 016 [email or web address] [facility], [address] [place] [address], [address], [place], [address], 6 12:53:49 HIV (1+O+2) Ab, serum 2015 016 [email or web address] [facility], [address], [address], [place], [address], 6 12:53:50 Referral gastroente rologist referral 2016 017 [email or web address] Not available 7 15:58:31 Procedures None recorded. Surgeries None recorded. Imaging MAMMO, screening, digital, bilateral 2017 018 LUZ Sarmiento (Radiology), [address] [facility] , [place], [address], 8 13:32:06 MAMMO, screening, digital, bilateral 2016 017 LUZ Not available 7 16:56:57 MAMMO, screening, digital, bilateral 2015 016 LUZ Not available 6 23:36:20 Medication Orders Premarin 0.625 mg tablet 2017 018 INTERFACE [facility], [address], [address], [place], [address], 8 11:20:25 Premarin 0.625 mg tablet 2016 017 INTERFACE [facility], [address], [address], [place], [address], 7 11:18:11 Premarin 0.625 mg tablet 2015 016 [email or web address] 3 [facility], [address], [address], [place], [address], 6 12:40:11 Patient TargetsNo targets recorded. Patient Instructions Encounter Date Encounter Id Patient Instructions Last Modified By Organization Details Last Modified Time 08/10/2015 [id number] hot flashes during menopause: care instructions [email or web address] Not available 08/10/2015 12:40:11 learning about breast cancer screening [email or web address] Not available 08/10/2015 12:40:10 09/23/2015 [id number] learning about breast cancer screening [email or web address] Not available 12/13/2015 14:26:02 08/14/2016 [id number] learning about breast cancer screening [email or web address] Not available 08/14/2016 11:14:57 09/04/2017 [id number] learning about breast cancer screening [email or web address] Not available 09/04/2017 11:19:32 Reason for Referral Referring Physician: Thong germain, EXTRACTOR OPERATOR, Encounter Date: 08/14/2016 Results Created Date Observation Date Name Description Value Unit Range Abnormal Flag Note LastModifiedBy Organization Detail LastModifiedTime 08/11/19 16 08/14/2015 bacte rial vagin osis + vagin itis panel , vagin al atopobium vaginae LOW - 0 score Not Available [facility] ([facility]) [address] [place], [address], 08/14/2015 14:36:43 08/11/19 16 08/14/2015 bacte rial vagin osis + vagin itis panel , vagin al bvab 2 LOW - 0 score Not Available [facility] ([facility]) [address] [place], [address], 08/14/2015 14:36:43 08/11/19 16 08/14/2015 bacte rial [...] E JODY CTERI STICS DETER MINED BY [employer]. IT HAS NOT BEEN CLEAR ED OR APPRO ANA PAULA BY THE FOOD AND DRUG ADMIN ISTRA TION. THE FDA HAS DETER MINED THAT SUCH CLEAR ANCE OR APPRO RALPH IS NOT NECES SUDHEER. Not Available [facility] ([facility]) [address] [place], [address], 08/14/2015 14:36:43 08/11/19 16 08/14/2015 bacte rial vagin osis + vagin itis panel , vagin al lui albicans, IAIN NEGATI VE negati ve Not Available [facility] ([facility]) [address] [place], [address], 08/14/2015 14:36:43 08/11/19 16 08/14/2015 bacte rial vagin osis + vagin itis panel , vagin al lui glabrata, IAIN NEGATI VE negati ve THIS TEST WAS DEVEL OPED AND ITS PERFO RMANC E JODY CTERI STICS DETER MINED BY [employer]. IT HAS NOT BEEN CLEAR ED OR APPRO ANA PAULA BY THE FOOD AND DRUG ADMIN ISTRA TION. THE FDA HAS DETER MINED THAT SUCH CLEAR ANCE OR APPRO RALPH IS NOT NECES SUDHEER. Not Available [facility] ([facility]) [address] [facility], [place], [address], 08/14/2015 14:36:43 08/11/19 16 08/14/2015 bacte rial vagin osis + vagin itis panel , vagin al trich vag by IAIN NEGATI VE negati ve Not Available [facility] ([facility]) [address] [place], [address], 08/14/2015 14:36:43 08/11/19 16 08/14/2015 bacte rial vagin osis + vagin itis panel , vagin al chlamydia trachomatis, IAIN NEGATI VE negati ve Not Available [facility] ([facility]) [address] [facility], [place], [address], 08/14/2015 14:36:43 08/11/19 16 08/14/2015 bacte rial vagin osis + vagin itis panel , vagin al neisseria gonorrhoeae, IAIN NEGATI VE negati ve Not Available [facility] ([facility]) [address] [facility], [place], [address], 08/14/2015 14:36:43 08/23/19 16 08/23/2015 MAMMO , scree ruben, digit al, bilat eral No observ ation record ed. [email or web address] [address] [place], [address], 08/26/2015 08:54:25 08/24/19 17 08/23/2016 MAMMO , scree ruben, digit al, bilat eral No observ ation record ed. [email or web address] [address] [place], [address], 08/30/2016 13:53:30 09/29/19 18 09/28/2017 MAMMO , scree ruben, digit al, bilat eral No observ ation record ed. [email or web address] [address] [place], [address], 10/10/2017 10:35:33 Result Notes None recorded. Problems Name Problem SNOMED Code Status Onset Date Resolution Date Notes Provider Name and Address Organization Details Recorded Time Acid reflux 964516606 Active [place], [place] - [facility] 6 11:33:59 Hypertensive disorder 61233546 Active [place] [facility] 6 11:33:59 Anxiety 66992962 Active [place], [place] [facility] 6 11:33:59 Menopausal flushing 655239558 Active [place], [place] [facility] 11:33:59 Problem Notes None recorded. Procedures Surgical History Date Name Laterality Status Provider Name and Address Organization Details Recorded Time 12/20/19 17 [facility] 10:43:32 08/24/19 17 Most Recent [facility]04[facility]2017 10:41:24 07/19/18 96 [facility] 11:02:15 07/19/18 96 [facility] 11:23:42 Other completed [facility] 08/10/2015 11:08:[address] [facility] 08/10/2015 11:08:16 [facility] 11:08:16 [facility] 11:23:18 Imaging Results None recorded. Procedure Notes None recorded. Medical Equipment None [...] hydrocodone 10 mg-acetaminop hen 325 mg tablet 09/04 completed Not Available Not [...] Not Available Not Available Not Available Fluvirin 6418-0202 (PF) 45 mcg (15 mcg x 3)/0.5 mL IM syringe active Not Available Not Available Not Available Fluvirin (PF) 45 mcg (15 mcg x 3)/0.5 mL intramuscular syringe active Not Available Not Available Not Available Flucelvax Quad (PF) 60 mcg (15 mcg x 4)/0.5 mL IM syringe active Not Available Not Available Not Available Vitals Date Recorded Body mass index (BMI) Body weight Body height Systolic And Diastolic Provider Name and Address Organization Details Last Updated DateTime 08/10/2015 32.8 kg/m2 53178.415 364 g 165.1 cm 116/76 mm[Hg] [facility] 08/10/2015 11:03:45 Date Recorded Body height Body weight Body mass index (BMI) Systolic And Diastolic Provider Name and Address Organization Details Last Updated DateTime 08/14/2016 165.1 cm 48480.1 g 32.6 kg/m2 124/84 mm[Hg] [facility] 08/14/2016 10:41:57 Date Recorded Body height Body mass index (BMI) Body weight Systolic And Diastolic Provider Name and Address Organization Details Last Updated DateTime 09/04/2017 165.1 cm 33.1 kg/m2 70323.52 g 132/84 mm[Hg] Beth Jimenez [facility] 09/04/2017 10:38:51 Date Recorded Body weight Body mass index (BMI) Body height Systolic And Diastolic Provider Name and Address Organization Details Last Updated DateTime 09/23/2015 21268.434 439 g 32.4 kg/m2 165.1 cm 138/88 mm[Hg] Beth Jimenez [facility] 09/23/2015 11:34:00 Social History Question Answer Notes LastModified by [employer] Details LastModified Time Tobacco Smoking Status Former Smoker quit 2005 Beth Jimenez dahlia [facility] 08/10/2015 11:08:16 Is Blood Transfusion Acceptable In An Emergency? Yes Information not available 08/10/2015 What Is Your Level Of Caffeine Consumption? Occasional Information not available 08/10/2015 How Much Tobacco Do You Chew? None Information not available 08/10/2015 What Type Of [...] ion Details LastModified Time What is your level of alcohol consumption? None Information not available 08/10/2015 Are you currently employed? No retired Information not available 08/10/2015 What is your exercise level? Occasional Information [...] Clots Y GI Problems N Acne N Breast Problem N Eating Disorder N Anemia N Anesthesia Complications N Headaches/Migraines Y Ovarian Cancer N Diabetes N Anxiety Disorder Y Muscle, Joint, or Bone Problems N Blood Transfusions Y Seizures/Epilepsy N Polyps N Infertility N Acid Reflux (GERD) Y Cancer N [...] Diagnosis SNOMED-CT Code Diagnosis ICD10 Code Diagnosis IMO Codes Diagnosis Note [id number] [facility]PER[facility] [address] [place] [address] 08/10/2015 10:47:42 08/10/2015 11:58:04 Gynecologic examination 41054578 Z01.419 Venereal d isease screening 737364172 Z11.3 RTO one week for results. Screening for malignant neoplasm of breast 004857518 Z12.39 Screening for malignant neoplasm of colon 467456711 Z12.11 UTD. Last 2006, good for 10 years. Menopausal flushing 1984 56114 N95.1 Risk with HTN, age > 60, and estrogen therapy d/w pt. at length. Article given to pt. Pt. wants to continue estrogen therapy saying, I believe in quality of life, not length. Potential for decrease quality of life with estrogen & HTN discussed. Pt. said she would take her chances. Rx sent to pharmacy. [id number] MD Tiana Manuel (EXTRACTOR OPERATOR) [address] [place] [address] 09/23/2015 11:26:56 09/23/2015 12:06:16 Gynecologic examination 25861469 Z01.419 Pt. had hysterecto my for benign reasons in 2010. Therefore, no pap needed. RTO PRN + one year for AE. Screening for malignant neoplasm of breast 110148470 Z12.39 Mammogram done 08/23/15 was negative. Repeat one year dwp. Venereal d isease screening 308507930 Z11.3 Vaginal culture was negative for gonorrhea, chlamydia, trichomona s, yeast, and BV, dwp. STD panel was also completely negative. Individual test results d/w pt. [id number] MD Tiana Manuel (EXTRACTOR OPERATOR) [address] [place] [address] 08/14/2016 10:27:42 08/14/2016 15:58:31 Gynecologic examination 51670596 Z01.419 Normal exam s/p hysterecto my, dwp. Screening for malignant neoplasm of breast 536608755 Z12.39 Mammogram done 08/23/15 was negative. Order given for this year. Screening for malignant neoplasm of colon 801492013 Z12.11 Last 2006, due for repeat.. Referral generated. Menopausal syndrome 1237 56516 N95.9 Pt. doing well on premarin 0.625 QD. Refill sent. [id number] [facility] [address] [place] [address] 09/04/2017 10:17:15 09/07/2017 11:33:04 Gynecologic examination 64319172 Z01.419 Normal exam s/p hysterecto my for benign reasons, dwp. No paps needed. Screening for malignant neoplasm of breast 393626254 Z12.39 Mammogram done 08/23/16 was negative. Order given for this year. Screening for malignant neoplasm of colon 288836181 Z12.11 Last 2015 or 2016 at [facility]. Good for 5 years Menopausal syndrome 1237 37314 N95.9 Pt. doing well on premarin 0.625 QD. Refill sent. Health Concerns Section Related Observation LastModified by Organization Detai ls LastModified Time None Recorded Concern Status LastModified by Organization Details LastModified Time None Recorded Advance Directives Directive None Recorded Payers Insurance Date Sequence Insurance Name Policy Number Policy Cheney Covered Member ID Cheney Member ID Guarantor Name 09/01/2017 2 [employer]PP[place] [id number] Adithya Perez [id number] Bell Perez 09/01/2017 1 [facility] (MEDICARE REPLACEMENT/ ADVANTAGE - HMO) [id number] Bell Perez [id number] Bell Perez Notes Date Note Type Note Provider Name and Address Organization Details Recorded Time 6 text/html Annual GYNReported by PatientHistoryFor history, patient reportsno gynecologic complaints.Genitourinary symptomsFor menstrual cycle, patient reportsnormal menses. For urinary symptoms, patient reportsno hematuriaandno incontinence. For vulva, patient reportsno genital lesion. For vagina, patient reportsnormal vaginal discharge.Breast symptomsFor breast, patient reportsno breast pain,no breast lump, andno nipple discharge.ContraceptionFo r current contraception, (hysterectomy).Endocrine symptomsFor sexual complaints, patient reportsno sexual complaints,no pain during intercourse, andnormal libido. For menopausal symptoms, patient reportsno menopausal symptomsandnormal vaginal lubrication.Psychological symptomsFor psychological symptoms, patient reportsno depression,no anxiety, andno pmdd.Preventative measuresFor preventive measures, patient reportsencourage self breast examination,encourage regular exercise,encourage no tobacco use,encourage regular mammograms starting age 40,needs to schedule mammogram, andup to date on colonoscopy screening (2006 for 10 years). Thong villagomez [facility] 08/10/2015 12:40:33 6 text/html Pt. presents for results of her mammogram and STD testing done 08/10/15 at her AE. She has no complaints. Thong villagomez [facility] 12/13/2015 14:11:55 7 text/html Annual GYNReported by PatientGenitourinary symptomsFor menstrual cycle, patient reportsnormal menses. For urinary symptoms, patient reportsno hematuriaandno incontinence. For vulva, patient reportsno genital lesion. For vagina, patient reportsnormal vaginal discharge.Breast symptomsFor breast, patient reportsno breast pain,no breast lump, andno nipple discharge.ContraceptionFo r current contraception, (hysterectomy).Endocrine symptomsFor sexual complaints, patient reportsno sexual complaints,no pain during intercourse, andnormal libido. For menopausal symptoms, patient reportsno menopausal symptomsandnormal vaginal lubrication.Psychological symptomsFor psychological symptoms, patient reportsno depression,no anxiety, andno pmdd.Preventative measuresFor preventive measures, patient reportsencourage self breast examination,encourage regular exercise,encourage no tobacco use,encourage regular mammograms starting age 40, andneeds to schedule colonoscopy (angel. dr. montelongo). Thong villagomez [facility] 08/14/2016 11:24:25 8 text/html Annual GYNReported by PatientGenitourinary symptomsFor menstrual cycle, patient reportsnormal menses. For urinary symptoms, patient reportsno hematuriaandno incontinence. For vulva, patient reportsno genital lesion. For vagina, patient reportsnormal vaginal discharge.Breast symptomsFor breast, patient reportsno breast pain,no breast lump, andno nipple discharge.ContraceptionFo r current contraception, (hysterectomy).Endocrine symptomsFor sexual complaints, patient reportsno sexual complaints,no pain during intercourse, andnormal libido. For menopausal symptoms, patient reportsno menopausal symptomsandnormal vaginal lubrication.Psychological symptomsFor psychological symptoms, patient reportsno depression,no anxiety, andno pmdd.Preventative measuresFor preventive measures, patient reportsencourage self breast examination,encourage regular exercise,encourage no tobacco use,encourage regular mammograms starting age 40,needs to schedule mammogram, andup to date on colonoscopy screening. Thong [facility] [place] [facility] 09/04/2017 14:11:50 OBGyn Episode Ob Episode Information Episode Created Date Number of Fetuses Patient Bloodtype Patient rh Status Prepregnancy Weight lbs Domestic Partner Domestic Partner Phone Father Name Assistant Women'S Soccer Coach Status 08/10/19 16 1 CLOSED Fetus Data First Name Last Name Admitted to NICU Weight (g) Sex Living Outcome Pediatric Complications Fetus ID Race Codes Race Delivery Type 3203.49 35 F Full Term [id number] Vaginal Alexi Calculation Initial Alexi Date Initial [...] Domestic Partner Domestic Partner Phone Father Name Assistant Women'S Soccer Coach Status 08/10/19 16 1 CLOSED Fetus Data First Name Last Name Admitted to NICU Weight (g) Sex Living Outcome Pediatric Complications Fetus ID Race Codes Race Delivery Type 3118.44 5 F Full Term [id number] Vaginal Alexi Calculation Initial Alexi Date Initial [...]
[2025-04-09 07:17] VITALS: BP 132/80; PULSE 90; RESP 20; TEMP 35.9; O2SAT 99; BMI 26.6
--- NOTE | 2025-04-09 07:22 | P.PNAN_ITS ---
Anes - Initial Pre Proc Eval Procedure: Operation Date: 04/09/25 08:30 Proposed Procedures p Screening Colonoscopy - Delio Valentin MD Date/Time: 04/09/25 07:22 Surgeon: Delio Valentin MD Pre Op Diagnosis: Personal history of other colon polyps Patient Data Age: 69 Gender: F Height: 1.65 m Weight: 72.6 kg Last Vital Signs Temp 35.9 C L 04/09/25 07:17 Pulse 90 04/09/25 07:17 Resp 20 04/09/25 07:17 BP 132/80 04/09/25 07:17 Pulse Ox 99 04/09/25 07:17 O2 Del Method Room Air 04/09/25 07:17 Allergies Allergy/AdvReac Type Severity Reaction Status Date / Time No Known Allergies Allergy Verified 04/09/25 07:15 Home Medications ?Medication ?Instructions ?Recorded ?Confirmed ?Type multivitamin-ferrous 1 tablet PO DAILY 02/12/20 1 06/09/24 History fumarate-folic acid 18 mg-400 mcg tablet (Centrum Complete) pseudoephedrine HCl 30 mg tablet 30 mg PO Q4-6H PRN na jeannie congestion 02/12/20 04/09/25 History (Sudafed) calcium 600 mg (as 1 cap PO DAILY 04/12/2103/22 History carbonate)-vitamin D3 5 mcg (200 unit) capsule ferrous sulfate 134 mg (27 mg 134 mg PO DAILY 04/05/22 04/09/25 History iron) tablet lorazepam 1 mg tablet 1 mg PO TID PRN anxiety #90 tabs 08/31/23 04/09/25 Rx venlafaxine 150 mg 150 mg PO DAILY #90 caps 05/1304/09/25 Rx capsule,extended release 24 hr (Effexor XR) omeprazole 20 mg capsule,delayed 20 mg PO DAILY 04/09/25 History release hydrochlorothiazide 12.5 mg tablet 12.5 mg PO DAILY #9 0 tabs 08/15/24 04/09/25 Rx conjugated estrogens 0.625 mg 0.625 mg PO DAILY #90 ta bs 08/20/24 04/09/25 Rx tablet (Premarin) cholestyramine (with sugar) 4 gram 4 g PO DAILY PRN lo ose stool 09/14/24 03/25/25 Rx oral powder #368.76 grams lisinopril 20 mg tablet 20 mg PO DAILY #30 tabs 01/1904/09/25 Rx Patient hx anesthesia problems: none Family hx anesthesia problems: none Results Review: All pre-operative results and documents have been reviewed as part of the pre- operative evaluation. 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 Hyperlipidemia Microcytic anemia Hypertension Metal bone fixation hardware in place Surgical History Surgical History S/P brachioplasty Hx of breast reduction, elective [place] abdomin[place] 09[place] H/[place] gastric sleeve (~09/2021[place] History of hysterectomy H/O total knee replacement History of back surgery History of cholecystectomy [place] teeth removed History of tonsillectomy Family History Family History Sibling Diabetes mellitus Father Hypertension Malignant neoplasm of prostate Family history of malignant neoplasm of urinary bladder Mother Hypertension Acute myocardial infarction Family history of malignant neoplasm of uterus Family history of arthritis Social History Social History Smoking packs per day: 1 Smoking cigarettes per day: 20.0 Years smoked: 15 Smoking pack-years: 15.00 Smoking status: Former smoker Tobacco type: cigarettes Second hand tobacco smoke exposure: No Smoking end date: 05/21/93 Alcohol intake: never Substance use: never Substance use type: does not use Do You Feel Safe in your Home?: Yes Lack of Transportation: No Lack of Food: Never True Current Housing: I Have Housing Concerned About Future Housing: No Difficulty Paying Gas/Electric Bills: No Difficulty Paying for Meds: No Currently Unemployed: No Education: Bachelor's Degree Difficulty w/ Childcare or Family Care: No Living arrangements: with family Additional living arrangements comments: Occupation/Education: retired Additional occupation/education comments: [employer] Gender identity (if verbalized by the patient): Female Sexual Orientation (if Verbalized by the Patient): Straight or Heterosexual Spiritual care concerns: No Anes - Eval Final PreProcedure Day of Procedure 04/09/25 07:22 Patient weight: normal Heart: regular rate and rhythm Lungs: normal air movement Airway: Mallampati scale class 1 Neurological: alert and oriented Last oral intake: >/= 8 hours ASA classification: III Emergent: no Anesthetic plan: proceed Anesthesia type and monitoring: general GIVS and standard monitoring Results Review: All pre-operative results and documents have been reviewed as part of the pre- operative evaluation. Informed Consent: The patient's anesthetic plan and its attendant risks and benefits were discussed with the patient/family/POA. Questions were solicited and answers provided to the satisfaction of the patient/family/POA.
[2025-04-09] MEDS: LACTATED RINGERS 1,000 ML 150 ML IV CONT (07:27)
--- NOTE | 2025-04-09 08:20 | PM.IMHP ---
H&P: HPI History of Present Illness Date/Time: 04/09/25 08:20 Chief Complaint: History of colon polyps Narrative: The patient has a history of colonic polyps, the last colonoscopy was approximately 12 years ago. 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 Hyperlipidemia Microcytic anemia Hypertension Metal bone fixation hardware in place Surgical History Surgical History S/P brachioplasty Hx of breast reduction, elective [place] H[place] gastric sleeve [place]~09[place] History of hysterectomy H/O total knee replacement History of back surgery History of cholecystectomy [place] teeth removed History of tonsillectomy Family History Family History Sibling Diabetes mellitus Father Hypertension Malignant neoplasm of prostate Family history of malignant neoplasm of urinary bladder Mother Hypertension Acute myocardial infarction Family history of malignant neoplasm of uterus Family history of arthritis Social History Social History Smoking packs per day: 1 Smoking cigarettes per day: 20.0 Years smoked: 15 Smoking pack-years: 15.00 Smoking status: Former smoker Tobacco type: cigarettes Second hand tobacco smoke exposure: No Smoking end date: 05/21/93 Alcohol intake: never Substance use: never Substance use type: does not use Do You Feel Safe in your Home?: Yes Lack of Transportation: No Lack of Food: Never True Current Housing: I Have Housing Concerned About Future Housing: No Difficulty Paying Gas/Electric Bills: No Difficulty Paying for Meds: No Currently Unemployed: No Education: Bachelor's Degree Difficulty w/ Childcare or Family Care: No Living arrangements: with family Additional living arrangements comments: Occupation/Education: retired Additional occupation/education comments: [employer] Gender identity (if verbalized by the patient): Female Sexual Orientation (if Verbalized by the Patient): Straight or Heterosexual Spiritual care concerns: No Meds Home Medications and Allergies Home Medications ?Medication ?Instructions ?Recorded ?Confirmed ?Type multivitamin-ferrous 1 tablet PO DAILY 02/12/20 04/09/25 History fumarate-folic acid 18 mg-400 mcg tablet (Centrum Complete) pseudoephedrine HCl 30 mg tablet 30 mg PO Q4-6H PRN nasal congestion 02/12/20 04/09/25 History (Sudafed) calcium 600 mg (as 1 cap PO DAILY 04/12/21 04/09/25 History carbonate)-vitamin D3 5 mcg (200 unit) capsule ferrous sulfate 134 mg (27 mg 134 mg PO DAILY 04/05/22 04/09/25 History iron) tablet lorazepam 1 mg tablet 1 mg PO TID PRN anxiety #90 tabs 08/31/23 04/09/25 Rx venlafaxine 150 mg 150 mg PO DAILY #90 caps 08/31/23 04/09/25 Rx capsule,extended release 24 hr (Effexor XR) omeprazole 20 mg capsule,delayed 20 mg PO DAILY 05/31/24 04/09/25 History release hydrochlorothiazide 12.5 mg tablet 12.5 mg PO DAILY #90 tabs 08/15/24 04/09/25 Rx conjugated estrogens 0.625 mg 0.625 mg PO DAILY #90 tabs 08/20/24 04/09/25 Rx tablet (Premarin) cholestyramine (with sugar) 4 gram 4 g PO DAILY PRN loose stool 09/14/24 03/25/25 Rx oral powder #368.76 grams lisinopril 20 mg tablet 20 mg PO DAILY #30 tabs 02/03/25 04/09/25 Rx Allergies Allergy/AdvReac Type Severity Reaction Status Date / Time No Known Allergies Allergy Verified 04/09/25 07:15 Vital Signs Vital Signs - 24 hr 04/09/25 07:17 Temperature 96.6 F L Pulse Rate 90 Respiratory Rate 20 Blood Pressure 132/80 Pulse Oximetry 99 Oxygen Delivery Room Air Exam Const: General: cooperative and healthy appearing Resp: Effort & Inspection: normal respiratory effort and able to speak in complete sentences Auscultation: clear to auscultation bilaterally Cardio: Rate: regular rate Rhythm: regular rhythm GI: Inspection: normal to inspection GI Palp: No No hepatosplenomegaly present Auscultation: normal bowel sounds Rectal Exam: deferred Skin: General skin exam: normal color Psych: Appearance: grossly normal Mental Status: mental status grossly normal Assessment and Plan Assessment and plan (1) History of colonic polyps: Code(s): Z86.0100 - Personal history of colon polyps, unspecified Status: Acute Assessment and Plan: The patient is deemed a good candidate for the procedure. Consent signed. Will proceed.
--- NOTE | 2025-04-09 08:46 | S_PTH ---
PATIENT: Bell Perez LOC: [facility] U#:[id number] AGE/SX: 69/F ROOM: RE04/09/[address]: Delio Valentin MD : 1955 BED: DIS: 04/09/2025 SPEC #: [id number] RECD: 04/09/25 09:17 STATUS: LYNETTE REMisbah #: [id number] BRANDY: 04/09/25 08:[address]: Delio Valentin DEPT: [facility] Surgical RECD BY: Monica Manuel ENTERED: 04/09/25 09:17 SP TYPE: Surgical OTHR DR: Chinyere Mao PA-C Tissues: A - Colon Polypectomy B - Colon Polypectomy Procedures: Hematoxylin and Eosin Stain Gross and Microscopic Level 4
[2025-04-09 08:48] VITALS: BP 98/65; PULSE 78; RESP 21; O2SAT 98
[2025-04-09 08:58] VITALS: BP 97/59; PULSE 76; RESP 16; O2SAT 99
[2025-04-09 09:08] VITALS: BP 118/66; PULSE 67; RESP 22; O2SAT 99
== END 2025-04-09 09:22 | disposition home or self-care (01) ==
PROVIDERS: PCP Student in an Organized Health Care Education/Training Program; Referring Provider Family Medicine; Visit Provider Internal Medicine Gastroenterology
PROC: 0DJD8ZZ Inspection of Lower Intestinal Tract, Via Natural or Artificial Opening Endoscopic (ICD-10-PCS; CPT 45378; principal; 2025-04-09 08:30)
DX: Z12.11 Encounter for screening for malignant neoplasm of colon (principal); D12.5 Benign neoplasm of sigmoid colon; K63.5 Polyp of colon; K57.30 Diverticulosis of large intestine without perforation or abscess without bleeding
CPT/HCPCS: 45385; 88305; J2003; J2704; J7120